=== PATIENT | female | born 1935 | race Caucasian/White ===

== ENCOUNTER 2017-03-01 02:54 | Inpatient (IN) | payer MEDICARE, BC ==
[2017-03-01] MEDS ORDERED: Sodium Chloride 0.9% 1,000 ML IV SCH (04:00)
[2017-03-01] MEDS ORDERED: Ondansetron ODT 4 MG TAB SL PRN (04:00)
[2017-03-01] MEDS ORDERED: Ondansetron HCl/PF 4 MG/2 ML Vial IVP PRN ×2 (04:00→07:42)
[2017-03-01] MEDS ORDERED: Acetaminophen 325 MG TAB PO PRN ×2 (04:00→07:42)
[2017-03-01 04:16] LABS: #Lymphocytes 0.6 thou/uL (1.20-3.40); #Monocytes 1.7 thou/uL (0.11-0.59); #Neutrophils 11.4 thou/uL (1.40-6.50); %Basophils 0.1 % (0.0-1.0); %Eosinophils 0.1 % (0.0-10.0); %Lymphocytes 4.5 % (21.0-51.0); %Monocytes 12.5 % (0.0-10.0); %Neutrophils 82.8 % (42.0-75.0); Mean Corpuscular HGB CONC 31.9 g/dL (32.0-36.0); Mean Corpuscular Volume 94.1 fl (81.0-99.0); Mean Platelet Volume 7.2 fL (7.4-10.4); Platelet Count 207 thou/uL (130-400); RBC Distribution Width 14.4 % (11.5-14.5); Red Blood Cell (RBC) Count 3.33 mill/uL (4.20-5.40); White Blood Cell (WBC) Count 13.7 thou/uL (4.8-10.8)
[2017-03-01 04:25] LABS: ALT (SGPT) 20 U/L (8-55); AST (SGOT) 26 U/L (5-34); Albumin 3.6 g/dL (3.4-4.8); Alkaline Phosphatase 161 U/L (40-150); Anion Gap 14 mmol/L (10-20); BUN (Urea Nitrogen) 15 mg/dL (9.8-20.1); Bilirubin, Total 1.4 mg/dL (0.2-1.2); Calc. Creatinine Clearance 0 mL/min (70-130); Carbon Dioxide 26 mmol/L (23-31); Chloride 91 mmol/L (98-107); Estimated GFR-MDRD 58; Globulin 2.9 g/dL (2.4-3.5); Glucose 137 mg/dL (83-110); Potassium 4.1 mmol/L (3.5-5.1); Protein, Total 6.5 g/dL (6.0-8.3); Sodium 127 mmol/L (136-145)
[2017-03-01 04:28] LABS: CKMB 1.9 ng/mL (0-6.6); Troponin I Less than 0.010 ng/mL (< 0.028)
[2017-03-01] MEDS ORDERED: cefTRIAXone\\ROCEPHIN 1 GM, Syringe 0.4 ML in Sterile Water 9.6 ML SLOW IVP SCH (05:00)
[2017-03-01 06:25] LABS: INR-International Normal Ratio 1.6; PTT 39.6 SEC (22.9-36.1); Prothrombin Time 19.6 SEC (12.0-14.7)
[2017-03-01 06:38] VITALS: BMI 39.4
[2017-03-01] MEDS: Azithromycin 500 MG in Sodium Chloride 0.9% 250 ML 250 ML IVPB SCH ×2 (06:44→06:47)
[2017-03-01] MEDS ORDERED: Eucerin (Mineral Oil/Petrolatum,White) 30 gm Jar TOP PRN (07:42)
[2017-03-01] MEDS ORDERED: hydrALAZINE 20 MG/ML VIAL SLOW IVP PRN (07:42)
[2017-03-01] MEDS ORDERED: Milk Of Magnesia 30 ML UDCUP PO PRN (07:42)
[2017-03-01] MEDS ORDERED: Zolpidem Tartrate 5 MG TAB PO PRN (07:42)
[2017-03-01] MEDS ORDERED: Senokot 8.6 MG TAB PO PRN (07:42)
[2017-03-01] MEDS ORDERED: Ondansetron ODT 4 MG TAB PO PRN (07:42)
[2017-03-01] MEDS ORDERED: Sodium Chloride 0.65% Nasal 44 ML BOT EA NARE PRN (07:42)
[2017-03-01] MEDS ORDERED: Artificial Tears 18 DROP/0.9 ML EA EYE PRN (07:42)
[2017-03-01] MEDS ORDERED: Diabetic Tussin 200 MG/10 ML UDCUP PO PRN (07:42)
[2017-03-01] MEDS ORDERED: Loperamide HCl 2 MG CAP PO PRN (07:42)
[2017-03-01] MEDS ORDERED: Chloraseptic Spray 180 ml Bottle PO PRN (07:42)
[2017-03-01] MEDS ORDERED: Mag-Al 1200 mg/1200 mg/30 ML UDCUP PO PRN (07:42)
[2017-03-01] MEDS ORDERED: Benzonatate 100 MG CAP PO PRN (07:42)
[2017-03-01] MEDS ORDERED: Loratadine 10 MG TAB PO PRN (07:42)
[2017-03-01] MEDS: HYDROcodone/Acetaminophen 5/325 mg Tablet PO PRN ×2 (09:18→19:34)
[2017-03-01] MEDS: guaiFENesin ER 600 MG TAB PO SCH ×2 (09:20→20:55)
--- NOTE | 2017-03-01 11:34 | HP ---
PRIMARY CARE PHYSICIAN: Corbin Purcell M.D. REASON FOR ADMISSION: Acute hypoxic respiratory failure, sepsis with acute organ dysfunction, multif ocal community-acquired pneumonia. HISTORY OF PRESENT ILLNESS: A 81-year-old female who lives at home with her who also has cardenas. Patient has caregiver and many other close family members were having flu-like illness. The patient also started having cough and shortness of breath for the last 3-5 days. Her condition was d ay by day getting worse. She was having wheezing. She was feeling more short of breath and she star werner having fever. She was tachypneic and her oxygen saturation was low and that is why patient's fam david member took her to local urgent care on Wednesday. At that time, flu test was negative, but still T IMI flow was prescribed. The patient took total of 3 doses of Tamiflu. The patient's condition had gotten worse over the weekend. Her [id number] medication was not helping. The patient was hav ing fever and her oxygen saturation was dropping even more and that is why daughter was concerned abo ut it and decided to bring her to the emergency room for evaluation. Patient has a history of PE and she is on chronic Eliquis therapy. Her normal oxygen saturations run s in 93%-95% per daughter. Patient was having more weakness because of fever and cough. The patient was also having nausea and poor appetite for last 2-3 days. Today in the emergency room, she was evaluated and she was found with multifocal pneumonia. She was hypoxic. She was tachypneic and she was afebrile. She was hemodynamically stable after emergency ro om treatment with Rocephin and azithromycin. The patient was admitted to medical floor for further t reatment. The patient's daughter was present at bedside who provided most of the history. REVIEW OF SYSTEMS: The following complete review of systems was negative, unless otherwise mentioned in the HPI or below: Constitutional: Weight loss or gain, ability to conduct usual activities. Skin: Rash, itching. Eyes: Double vision, pain. ENT/Mouth: Nose bleeding, neck stiffness, pain, tenderness. Cardiovascular: Palpitations, dyspnea on exertion, orthopnea. Respiratory: Shortness of breath, wheezing, cough, hemoptysis, fever or night sweats. Gastrointestinal: Poor appetite, abdominal pain, heartburn, nausea, vomiting, constipation, or diarr hea. Genitourinary: Urgency, frequency, dysuria, nocturia. Musculoskeletal: Pain, swelling. Neurologic/Psychiatric: Anxiety, depression. Allergy/Immunologic: Skin rash, bleeding tendency. Please see my HPI for pertinent positive and negative. All other review of system reviewed and negat james except as mentioned in the HPI. PAST MEDICAL HISTORY: Left-sided pulmonary embolism on chronic anticoagulation therapy, coronary art angelic disease, chronic diastolic heart failure, hypertension, dyslipidemia, irritable bowel syndrome, h ypertension, history of breast cancer treated with radiation therapy and lumpectomy, history of sarco idosis, history of melanoma. PAST SURGICAL HISTORY: Cardiac catheterization with angioplasty and stent placement in the past, car pal tunnel surgery, bilateral total knee replacement, hysterectomy, lumpectomy for breast cancer, and mediastinal biopsy. PAST PSYCHIATRIC HISTORY: Reviewed and negative. SOCIAL HISTORY: Patient lives at home with her . She is . Patient is ambulating with a cane. No history of tobacco, alcohol or illicit drug abuse. Patient's 3 daughters and grandkids are helping them out. ALLERGIES: No known drug allergies. CURRENT HOME MEDICATIONS: Coreg 12.5 mg twice daily, Protonix 40 mg p.o. daily, Aldactone 50 mg half tablet daily, Claritin 10 mg daily, anastrozole 1 mg p.o. daily, torsemide 10 mg daily, Lipitor 20 m g p.o. daily, amitriptyline 25 mg p.o. at bedtime, Eliquis 2.5 mg p.o. daily. EMERGENCY ROOM COURSE: Patient was given Rocephin and azithromycin. FAMILY HISTORY: No strong family history of premature coronary artery disease, stroke or cancer. PHYSICAL EXAMINATION: VITAL SIGNS: On arrival, blood pressure 133/90, pulse 83, respiratory rate 24, saturation 88% on jose alejandro m air. Weight 88.4 kilograms. GENERAL: Patient is currently alert, awake, follows command, no obvious acute distress. HEAD: Normocephalic, atraumatic. EYES: Pupils are round and reactive to light. Extraocular muscles intact. ENT: Oropharynx within normal limits. Moist mucous membranes. No oral lesions. No pharyngeal eryt erika, no exudate. NECK: Supple, no JVD, no thyromegaly, no carotid bruit, no meningeal signs of irritation. LUNGS: The patient does have decreased breath sounds at the bases, but patient does have rales on th e right lower lobe and scattered coarse sounds noted. CARDIAC: S1 and S2 regular, soft systolic murmur present at parasternal area. ABDOMEN: Soft, obesity present. Bowel sounds present. Nontender and nondistended. No organomegaly , no mass, no suprapubic tenderness. BACK: Examination unremarkable, no CVA tenderness. EXTREMITIES: Upper extremity passive movements of all joints are normal. Lower extremities: No shannan ma. Good peripheral pulsation. SKIN: No skin rash. HEMATOLOGICAL SYSTEM: No lymphadenopathy. PSYCHIATRIC: Normal affect. NEUROLOGIC: Nonfocal examination. IMAGING DATA AND SIGNIFICANT LABORATORY DATA: 1. EKG showing normal sinus rhythm, nonspecific ST-T changes, left atrial enlargement. 2. Chest x-ray based on my review, multilobar pneumonia, most likely on the right lower lobe. 3. CBC: WBC 13.7, hemoglobin 10.0, platelets 207 with left shift. INR 1.6. 4. BMP: Sodium 127, potassium 4.1, chloride 91, carbon dioxide 26, anion gap 14, BUN 15, creatinine 0.93, glucose 137, calcium 10.0. 5. LFT: AST 26, ALT 20, alkaline phosphatase 161, albumin 3.6, TSH 0.59, CK-MB 1.9, troponin I less than 0.010. ASSESSMENT AND PLAN/IMPRESSION: 1. Acute respiratory failure with hypoxia, likely due to multifocal community-acquired pneumonia. P atient will be given oxygen and we will titrate her requirement for oxygen. We are hoping that with treatment of pneumonia, she will not need home oxygen upon discharge. 2. Community-acquired bacterial pneumonia. Patient had multifocal infiltration. The patient has as sociated hypoxic respiratory failure and sepsis with acute organ dysfunction. Patient will be given Rocephin and levofloxacin. We will continue with DuoNeb therapy q.6 hourly and Mucinex 600 mg twice daily. We will monitor clinical response. 3. Sepsis with acute organ dysfunction. The patient has acute hypoxic respiratory failure. She has leukocytosis, fever, and tachypnea. She meets sepsis criteria. At this point, patient is on broad spectrum antibiotic therapy and we will follow up on culture result. Because of her congestive heart failure history, we will avoid IV fluid. 4. Obesity with body mass index 39. Weight loss as advised. 5. Moderate mitral regurgitation, tricuspid regurgitation, and aortic regurgitation by echocardiogra phy. Patient does have murmur that can explain her valvular heart disease and that is probably contr ibuting to her chronic diastolic heart failure. 6. Hypertension, currently well controlled. We will resume patient's selected blood pressure medica tion while in hospital including Coreg and Aldactone if blood pressure permits. 7. Chronic diastolic heart failure. Currently, patient is euvolemic. If blood pressure permits, I will continue torsemide 10 mg p.o. daily. Because of relatively low blood pressure, we may hold on this medication today, but we are planning to resume as early as possible. 8. Anxiety and depression. We will continue amitriptyline 25 mg p.o. daily. 9. Coronary artery disease. We will continue aspirin 81 mg p.o. daily along with Eliquis 2.5 mg p.o . daily, Coreg therapy and statin therapy. 10. Chronic anticoagulation. We will continue Eliquis 2.5 mg p.o. daily. 11. Chronic low back pain. Patient's pain will be controlled with [place] on a p.r.n. basis. 12. Dyslipidemia. We will continue Lipitor 20 mg p.o. at bedtime. 13. Gastroesophageal reflux disease. We will continue Protonix 40 mg p.o. daily. 14. History of breast cancer. We will continue anastrozole 1 mg p.o. daily. 15. History of pulmonary embolism. We will continue Eliquis 2.5 mg p.o. daily. 16. Hypertension, currently well controlled and running on lower side, so we will consider restartin g Coreg, Aldactone, and torsemide as early as possible. 17. Deep venous thrombosis prophylaxis not needed because patient is already on Eliquis therapy. 18. Gastrointestinal prophylaxis. Patient is already on Protonix therapy. 19. Code status: The patient is FULL CODE, but patient does not want to be intubated in case if she has terminal illness, but currently pneumonia is not terminal illness and that is why patient wants to be a FULL CODE. Disposition plan based on clinical course. We are expecting patient's stay in the hospital more than 2 midnights. Plan of care discussed with patient's daughter and patient's bedside and answered all questions.
--- NOTE | 2017-03-01 13:45 | RAD ---
PORTABLE CHEST 1 VIEW: DATE: 03/01/17. TIME: 3:34 a.m. HISTORY: Cough, hypoxia. FINDINGS: Comparison is made with the exam of 04/23/16. The heart size is enlarged. The aorta is tortuous. The lungs are expanded with patchy airspace dise ase in the right lower lung. No pneumothoraces or pleural effusions are seen. IMPRESSION: Findings are suspicious for right-side pneumonia. POS: [facility]
[2017-03-01] MEDS: Atorvastatin Calcium 20 MG TAB PO SCH (20:55)
[2017-03-01] MEDS ORDERED: Amitriptyline HCl 25 MG TAB PO SCH (21:15)
[2017-03-02] MEDS: HYDROcodone/Acetaminophen 5/325 mg Tablet PO PRN ×4 (03:03→21:16)
[2017-03-02 05:48] LABS: #Lymphocytes 0.4 thou/uL (1.20-3.40); #Monocytes 1.3 thou/uL (0.11-0.59); #Neutrophils 10.3 thou/uL (1.40-6.50); %Eosinophils 0.1 % (0.0-10.0); %Lymphocytes 3.6 % (21.0-51.0); %Monocytes 10.5 % (0.0-10.0); %Neutrophils 85.8 % (42.0-75.0); Hemoglobin 8.9 g/dL (12.0-16.0); Mean Corpuscular HGB CONC 31.9 g/dL (32.0-36.0); Mean Corpuscular Hemoglobin 29.7 pg (27.0-31.0); Mean Corpuscular Volume 93.3 fl (81.0-99.0); Mean Platelet Volume 7.4 fL (7.4-10.4); Platelet Count 190 thou/uL (130-400); Red Blood Cell (RBC) Count 2.99 mill/uL (4.20-5.40)
[2017-03-02 06:00] LABS: ALT (SGPT) 20 U/L (8-55); AST (SGOT) 24 U/L (5-34); Albumin 2.9 g/dL (3.4-4.8); Alkaline Phosphatase 148 U/L (40-150); Anion Gap 10 mmol/L (10-20); BUN (Urea Nitrogen) 10 mg/dL (9.8-20.1); Bilirubin, Total 0.7 mg/dL (0.2-1.2); Calc. Creatinine Clearance 88 mL/min (70-130); Calcium 9.8 mg/dL (7.8-10.44); Carbon Dioxide 28 mmol/L (23-31); Chloride 91 mmol/L (98-107); Estimated GFR-MDRD 75; Globulin 2.6 g/dL (2.4-3.5); Glucose 133 mg/dL (83-110); Potassium 3.5 mmol/L (3.5-5.1); Protein, Total 5.5 g/dL (6.0-8.3); Sodium 125 mmol/L (136-145)
[2017-03-02] MEDS: cefTRIAXone\\ROCEPHIN 2 GM in Sodium Chloride 0.9% 100 ML IVPB SCH (06:31)
[2017-03-02] MEDS: guaiFENesin ER 600 MG TAB PO SCH ×2 (08:38→21:15)
[2017-03-02] MEDS: Apixaban 5 MG TAB PO SCH (08:39)
[2017-03-02] MEDS: Anastrozole 1 MG TAB PO SCH (08:41)
[2017-03-02] MEDS ORDERED: Amitriptyline HCl 25 MG TAB PO SCH (09:00)
--- NOTE | 2017-03-02 10:25 | PDOC.PN ---
- Subjective Encounter Start Date: 03/02/17 Encounter Start Time: 08:10 -: old records requested/rev pt is improving, has wheezing and cough, no fever Patient seen and examined. No overnight events - Objective Resuscitation Status: Resuscitation Status FULL:Full Resuscitation MAR Reviewed: Yes Vital Signs & Weight: Vital Signs (12 hours) Temp Pulse Resp BP Pulse Ox 03/02/17 08:10 98.0 F 72 16 131/74 95 03/02/17 08:00 98.0 F 72 16 03/02/17 06:55 79 16 95 03/02/17 04:00 97.9 F 70 18 132/70 65 L 03/02/17 00:40 79 16 93 L 03/02/17 00:00 98 F 80 16 134/82 98 Weight Weight 201 lb 11.2 oz I&O: 03/01/17 03/02/17 03/03/17 06:59 06:59 06:59 Intake Total 570 Balance 570 Result Diagrams: 03/02/17 05:18 03/02/17 05:18 Phys Exam - Physical Examination Constitutional: NAD HEENT: PERRLA, moist MMs, sclera anicteric Neck: no JVD, supple Respiratory: wheezing present basal rales more on right side Cardiovascular: RRR, no significant murmur, no rub Gastrointestinal: soft, non-tender, no distention, positive bowel sounds Musculoskeletal: no edema, pulses present Neurological: non-focal, normal sensation Lymphatic: no nodes Psychiatric: normal affect Skin: no rash, normal turgor Dx/Plan (1) Hyponatremia Code(s): E87.1 - HYPO-OSMOLALITY AND HYPONATREMIA Status: Acute (2) Acute respiratory failure with hypoxia Code(s): J96.01 - ACUTE RESPIRATORY FAILURE WITH HYPOXIA Status: Acute (3) Community acquired bacterial pneumonia Code(s): J15.9 - UNSPECIFIED BACTERIAL PNEUMONIA Status: Acute (4) Sepsis with acute organ dysfunction Code(s): A41.9 - SEPSIS, UNSPECIFIED ORGANISM; R65.20 - SEVERE SEPSIS WITHOUT SEPTIC SHOCK Status: Acute (5) Anxiety and depression Code(s): F41.8 - OTHER SPECIFIED ANXIETY DISORDERS Status: Chronic (6) CAD (coronary artery disease) Code(s): I25.10 - ATHSCL HEART DISEASE OF [place] CORONARY ARTERY W/O ANG PCTRS Status: Chronic (7) Chronic anticoagulation Code(s): Z79.01 - 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 PHP SOFTWARE 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 (CURRENT) USE OF ANTICOAGULANTS Status: Chronic (8) Chronic diastolic (congestive) heart failure Code(s): I50.32 - CHRONIC DIASTOLIC (CONGESTIVE) HEART FAILURE Status: Chronic (9) Chronic lower back pain Code(s): M54.5 - LOW BACK PAIN; G89.29 - OTHER CHRONIC PAIN Status: Chronic (10) Dyslipidemia Code(s): E78.5 - HYPERLIPIDEMIA, UNSPECIFIED Status: Chronic (11) GERD (gastroesophageal reflux disease) Code(s): K21.9 - GASTRO-ESOPHAGEAL REFLUX DISEASE WITHOUT ESOPHAGITIS Status: Chronic (12) H/O malignant neoplasm of breast Code(s): Z85.3 - PERSONAL HISTORY OF MALIGNANT NEOPLASM OF BREAST Status: Chronic (13) History of pulmonary embolism Code(s): Z86.711 - PERSONAL HISTORY OF PULMONARY EMBOLISM Status: Chronic (14) Hypertension Code(s): I10 - ESSENTIAL (PRIMARY) HYPERTENSION Status: Chronic Comment: controlled (15) Moderate aortic regurgitation Code(s): I35.1 - NONRHEUMATIC AORTIC (VALVE) INSUFFICIENCY Status: Chronic (16) Moderate mitral regurgitation by prior echocardiogram Code(s): I34.0 - NONRHEUMATIC MITRAL (VALVE) INSUFFICIENCY Status: Chronic (17) Moderate tricuspid regurgitation by prior echocardiogram Code(s): I07.1 - RHEUMATIC TRICUSPID INSUFFICIENCY Status: Chronic (18) Obesity (BMI 30-39.9) Code(s): E66.9 - OBESITY, UNSPECIFIED Status: Chronic - Plan cont current plan of care, plan discussed w/ family, continue antibiotics, respiratory therapy * fluid restriction advised * medication reviewed as below * symptomatic treatment * discussed with daughter * continue duoneb, roicephin, levaquin, mucinex * start PT * improving * repeat labs tomorrow. Review of Systems - Review of Systems Constitutional: weakness. negative: fever, chills, sweats, malaise, other ENT: negative: Ear Pain, Ear Discharge, Nose Pain, Nose Discharge, Nose Congestion, Mouth Pain, Mouth Swelling, Throat Pain, Throat Swelling, Other Respiratory: Cough, Pleuritic Pain, Sputum, Wheezing. negative: Dry, Shortness of Breath, Hemoptysis, SOB with Excertion Cardiovascular: negative: chest pain, palpitations, orthopnea, paroxysmal nocturnal dyspnea, edema, light headedness, other Gastrointestinal: negative: Nausea, Vomiting, Abdominal Pain, Diarrhea, Constipation, Melena, Hematochezia, Other Genitourinary: negative: Dysuria, Frequency, Incontinence, Hematuria, Retention , Other Musculoskeletal: negative: Neck Pain, Shoulder Pain, Arm Pain, Back Pain, Hand Pain, Leg Pain, Foot Pain, Other Skin: negative: Rash, Lesions, [place], Bruising, Other - Medications/Allergies Allergies/Adverse Reactions: Allergies Allergy/AdvReac Type Severity Reaction Status Date / Time No Known Drug Allergies Allergy Verified 03/25/16 18:18 adhesives Allergy Uncoded 03/25/16 18:18 Medications: Current Medications Acetaminophen (Tylenol) 650 mg PO Q4H PRN PRN Reason: Headache/Fever or Pain Hydrocodone Bitart/Acetaminophen ([place] 5/325) 1 tab PO Q4H PRN PRN Reason: Moderate Pain (4-6) Last Admin: 03/02/17 08:44 Dose: 1 tab Al Hydroxide/Mg Hydroxide (Maalox) 30 ml PO Q6H PRN PRN Reason: Heartburn or Indigestion Albuterol/Ipratropium (Duoneb) 3 ml NEB [id number] [facility] Last Admin: 03/02/17 06:55 Dose: 3 ml Amitriptyline HCl (Elavil) [address] [facility] Anastrozole (Arimidex) 1 mg PO DAILY [facility] Last Admin: 03/02/17 08:41 Dose: 1 mg Apixaban (Eliquis) 2.5 mg PO DAILY [facility] Last Admin: 03/02/17 08:39 Dose: 2.5 mg Artificial Tears (Tears Naturale) 0 drop EA EYE PRN PRN PRN Reason: Dry Eyes Atorvastatin Calcium (Lipitor) 20 mg PO HS [facility] Last Admin: 03/01/17 20:55 Dose: 20 mg Benzonatate (Tessalon) 100 mg PO Q4H PRN PRN Reason: Cough Guaifenesin (Robitussin Sf) 200 mg PO Q4H PRN PRN Reason: Cough Guaifenesin (Mucinex) 600 mg PO Q12HR [facility] Last Admin: 03/02/17 08:38 Dose: 600 mg Hydralazine HCl (Apresoline) 10 mg SLOW IVP Q4H PRN PRN Reason: Systolic BP > 180 Ceftriaxone Sodium 2 gm/ (Sodium Chloride) 100 mls @ 200 mls/hr IVPB 0600 [facility] Last Admin: 03/02/17 06:31 Dose: 100 mls Levofloxacin 750 mg/ Device 150 mls @ 100 mls/hr IVPB 0800 [facility] Last Admin: 03/02/17 08:38 Dose: 150 mls Loperamide HCl (Imodium) 2 mg PO PRN PRN PRN Reason: Diarrhea/Loose Stools Loratadine (Claritin) 10 mg PO DAILYPRN PRN PRN Reason: Sinus Symptoms Magnesium Hydroxide (Milk Of Magnesium) 30 ml PO DAILYPRN PRN PRN Reason: Constipation Mineral Oil/White Petrolatum (Eucerin Cream) 0 gm TOP BIDPRN PRN PRN Reason: Dry Skin Ondansetron HCl (Zofran Odt) 4 mg PO Q6H PRN PRN Reason: Nausea/Vomiting Ondansetron HCl (Zofran) 4 mg IVP Q6H PRN PRN Reason: Nausea/Vomiting Pantoprazole Sodium (Protonix) 40 mg PO DAILY [facility] Last Admin: 03/02/17 08:38 Dose: 40 mg Phenol (Chloraseptic [place] 180 Ml Bot) 0 ml PO PRN PRN PRN Reason: Sore Throat Senna (Senokot) 2 tab PO HSPRN PRN PRN Reason: Constipation Sodium Chloride ([place] Nasal [place] 0.65%) 0 ml EA NARE QIDPRN PRN PRN Reason: Nasal Congestion Sodium Chloride (Flush - Normal Saline) 10 ml IVF Q12HR [facility] Last Admin: 03/02/17 08:42 Dose: 10 ml Sodium Chloride (Flush - Normal Saline) 10 ml IVF PRN PRN PRN Reason: Saline Flush Zolpidem Tartrate (Ambien) 5 mg PO HSPRN PRN PRN Reason: Insomnia
[2017-03-02] MEDS: Amitriptyline HCl 25 MG TAB PO SCH (21:16)
[2017-03-02] MEDS: Atorvastatin Calcium 20 MG TAB PO SCH (21:17)
[2017-03-03] MEDS: cefTRIAXone\\ROCEPHIN 2 GM in Sodium Chloride 0.9% 100 ML IVPB SCH (05:52)
[2017-03-03] MEDS: HYDROcodone/Acetaminophen 5/325 mg Tablet PO PRN ×2 (08:00→17:28)
[2017-03-03 08:28] LABS: #Lymphocytes 0.4 thou/uL (1.20-3.40); #Monocytes 1.2 thou/uL (0.11-0.59); #Neutrophils 10.7 thou/uL (1.40-6.50); %Eosinophils 0.1 % (0.0-10.0); %Lymphocytes 3.5 % (21.0-51.0); %Monocytes 9.7 % (0.0-10.0); %Neutrophils 86.7 % (42.0-75.0); Hemoglobin 10.8 g/dL (12.0-16.0); Mean Corpuscular Hemoglobin 30.1 pg (27.0-31.0); Mean Platelet Volume 6.7 fL (7.4-10.4); Platelet Count 284 thou/uL (130-400); RBC Distribution Width 14.5 % (11.5-14.5); Red Blood Cell (RBC) Count 3.59 mill/uL (4.20-5.40); White Blood Cell (WBC) Count 12.3 thou/uL (4.8-10.8)
[2017-03-03 08:49] LABS: Anion Gap 16 mmol/L (10-20); BUN (Urea Nitrogen) 6 mg/dL (9.8-20.1); Calc. Creatinine Clearance 93 mL/min (70-130); Calcium 10.4 mg/dL (7.8-10.44); Carbon Dioxide 26 mmol/L (23-31); Chloride 98 mmol/L (98-107); Estimated GFR-MDRD 79; Glucose 106 mg/dL (83-110); Potassium 3.5 mmol/L (3.5-5.1); Sodium 136 mmol/L (136-145)
[2017-03-03] MEDS: Anastrozole 1 MG TAB PO SCH (09:00)
[2017-03-03] MEDS: Apixaban 5 MG TAB PO SCH (09:55)
[2017-03-03] MEDS: guaiFENesin ER 600 MG TAB PO SCH ×2 (09:55→20:13)
--- NOTE | 2017-03-03 10:16 | PDOC.PN ---
- Subjective Encounter Start Date: 03/03/17 Encounter Start Time: 08:10 Patient seen and examined. No new complaints. No overnight events - Objective Resuscitation Status: Resuscitation Status FULL:Full Resuscitation MAR Reviewed: Yes Vital Signs & Weight: Vital Signs (12 hours) Temp Pulse Resp BP Pulse Ox 03/03/17 08:20 98.1 F 86 18 150/72 H 94 L 03/03/17 03:49 98.0 F 80 16 134/80 95 03/03/17 01:55 95 03/03/17 01:34 98.1 F 80 16 138/77 99 Weight Weight 201 lb 11.2 oz I&O: 03/02/17 03/03/17 03/04/17 06:59 06:59 06:59 Intake Total 570 1070 Balance 570 1070 Result Diagrams: 03/03/17 08:19 03/03/17 08:19 Phys Exam - Physical Examination Constitutional: NAD HEENT: PERRLA, moist MMs, sclera anicteric Neck: no JVD, supple Respiratory: no wheezing, no rales, no rhonchi Cardiovascular: RRR, no significant murmur, no rub Gastrointestinal: soft, non-tender, no distention, positive bowel sounds Musculoskeletal: no edema, pulses present Neurological: non-focal, normal sensation, moves all 4 limbs Psychiatric: normal affect, A&O x 3 Skin: no rash, normal turgor Dx/Plan (1) Acute respiratory failure with hypoxia Code(s): J96.01 - ACUTE RESPIRATORY FAILURE WITH HYPOXIA Status: Acute (2) Community acquired bacterial pneumonia Code(s): J15.9 - UNSPECIFIED BACTERIAL PNEUMONIA Status: Acute (3) Sepsis with acute organ dysfunction Code(s): A41.9 - SEPSIS, UNSPECIFIED ORGANISM; R65.20 - SEVERE SEPSIS WITHOUT SEPTIC SHOCK Status: Acute (4) Anxiety and depression Code(s): F41.8 - OTHER SPECIFIED ANXIETY DISORDERS Status: Chronic (5) CAD (coronary artery disease) Code(s): I25.10 - ATHSCL HEART DISEASE OF [place] CORONARY ARTERY W/O ANG PCTRS Status: Chronic (6) Chronic anticoagulation Code(s): Z79.01 - SHELTER (CURRENT) USE OF ANTICOAGULANTS Status: Chronic (7) Chronic diastolic (congestive) heart failure Code(s): I50.32 - CHRONIC DIASTOLIC (CONGESTIVE) HEART FAILURE Status: Chronic (8) Chronic lower back pain Code(s): M54.5 - LOW BACK PAIN; G89.29 - OTHER CHRONIC PAIN Status: Chronic (9) Dyslipidemia Code(s): E78.5 - HYPERLIPIDEMIA, UNSPECIFIED Status: Chronic (10) GERD (gastroesophageal reflux disease) Code(s): K21.9 - GASTRO-ESOPHAGEAL REFLUX DISEASE WITHOUT ESOPHAGITIS Status: Chronic (11) H/O malignant neoplasm of breast Code(s): Z85.3 - PERSONAL HISTORY OF MALIGNANT NEOPLASM OF BREAST Status: Chronic (12) History of pulmonary embolism Code(s): Z86.711 - PERSONAL HISTORY OF PULMONARY EMBOLISM Status: Chronic (13) Hypertension Code(s): I10 - ESSENTIAL (PRIMARY) HYPERTENSION Status: Chronic Comment: controlled (14) Moderate aortic regurgitation Code(s): I35.1 - NONRHEUMATIC AORTIC (VALVE) INSUFFICIENCY Status: Chronic (15) Moderate mitral regurgitation by prior echocardiogram Code(s): I34.0 - NONRHEUMATIC MITRAL (VALVE) INSUFFICIENCY Status: Chronic (16) Moderate tricuspid regurgitation by prior echocardiogram Code(s): I07.1 - RHEUMATIC TRICUSPID INSUFFICIENCY Status: Chronic (17) Obesity (BMI 30-39.9) Code(s): E66.9 - OBESITY, UNSPECIFIED Status: Chronic - Plan cont current plan of care, plan discussed w/ family, continue antibiotics, PT/OT , respiratory therapy * medication reviewed as below * symptomatic treatment * continue one more day iv antibiotics * tomorrow will discharge Review of Systems - Review of Systems ENT: negative: Ear Pain, Ear Discharge, Nose Pain, Nose Discharge, Nose Congestion, Mouth Pain, Mouth Swelling, Throat Pain, Throat Swelling, Other Respiratory: negative: Cough, Dry, Shortness of Breath, Hemoptysis, SOB with Excertion, Pleuritic Pain, Sputum, Wheezing Cardiovascular: negative: chest pain, palpitations, orthopnea, paroxysmal nocturnal dyspnea, edema, light headedness, other Gastrointestinal: negative: Nausea, Vomiting, Abdominal Pain, Diarrhea, Constipation, Melena, Hematochezia, Other Genitourinary: negative: Dysuria, Frequency, Incontinence, Hematuria, Retention , Other Musculoskeletal: negative: Neck Pain, Shoulder Pain, Arm Pain, Back Pain, Hand Pain, Leg Pain, Foot Pain, Other Skin: negative: Rash, Lesions, [place], Bruising, Other - Medications/Allergies Allergies/Adverse Reactions: Allergies Allergy/AdvReac Type Severity Reaction Status Date / Time No Known Drug Allergies Allergy Verified 03/25/16 18:18 adhesives Allergy Uncoded 03/25/16 18:18 Medications: Current Medications Acetaminophen (Tylenol) 650 mg PO Q4H PRN PRN Reason: Headache/Fever or Pain Hydrocodone Bitart/Acetaminophen ([place] 5/325) 1 tab PO Q4H PRN PRN Reason: Moderate Pain (4-6) Last Admin: 03/03/17 08:00 Dose: 1 tab Al Hydroxide/Mg Hydroxide (Maalox) 30 ml PO Q6H PRN PRN Reason: Heartburn or Indigestion Albuterol/Ipratropium (Duoneb) 3 ml NEB [id number] [facility] Last Admin: 03/03/17 01:55 Dose: 3 ml Amitriptyline HCl (Elavil) 25 mg PO [facility] Last Admin: 03/02/17 21:16 Dose: 25 mg Anastrozole (Arimidex) 1 mg PO DAILY [facility] Last Admin: 03/02/17 08:41 Dose: 1 mg Apixaban (Eliquis) 2.5 mg PO DAILY [facility] Last Admin: 03/03/17 09:55 Dose: 2.5 mg Artificial Tears (Tears Naturale) 0 drop EA EYE PRN PRN PRN Reason: Dry Eyes Atorvastatin Calcium (Lipitor) 20 mg PO HS [facility] Last Admin: 03/02/17 21:17 Dose: 20 mg Benzonatate (Tessalon) 100 mg PO Q4H PRN PRN Reason: Cough Guaifenesin (Robitussin Sf) 200 mg PO Q4H PRN PRN Reason: Cough Guaifenesin (Mucinex) 600 mg PO Q12HR [facility] Last Admin: 03/03/17 09:55 Dose: 600 mg Hydralazine HCl (Apresoline) 10 mg SLOW IVP Q4H PRN PRN Reason: Systolic BP > 180 Ceftriaxone Sodium 2 gm/ (Sodium Chloride) 100 mls @ 200 mls/hr IVPB 0600 [facility] Last Admin: 03/03/17 05:52 Dose: 100 mls Levofloxacin 750 mg/ Device 150 mls @ 100 mls/hr IVPB 0800 [facility] Last Admin: 03/03/17 09:58 Dose: 150 mls Loperamide HCl (Imodium) 2 mg PO PRN PRN PRN Reason: Diarrhea/Loose Stools Loratadine (Claritin) 10 mg PO DAILYPRN PRN PRN Reason: Sinus Symptoms Magnesium Hydroxide (Milk Of Magnesium) 30 ml PO DAILYPRN PRN PRN Reason: Constipation Mineral Oil/White Petrolatum (Eucerin Cream) 0 gm TOP BIDPRN PRN PRN Reason: Dry Skin Ondansetron HCl (Zofran Odt) 4 mg PO Q6H PRN PRN Reason: Nausea/Vomiting Ondansetron HCl (Zofran) 4 mg IVP Q6H PRN PRN Reason: Nausea/Vomiting Pantoprazole Sodium (Protonix) 40 mg PO DAILY [facility] Last Admin: 03/03/17 09:55 Dose: 40 mg Phenol (Chloraseptic [place] 180 Ml Bot) 0 ml PO PRN PRN PRN Reason: Sore Throat Senna (Senokot) 2 tab PO HSPRN PRN PRN Reason: Constipation Sodium Chloride ([place] Nasal [place] 0.65%) 0 ml EA NARE QIDPRN PRN PRN Reason: Nasal Congestion Sodium Chloride (Flush - Normal Saline) 10 ml IVF Q12HR [facility] Last Admin: 03/02/17 21:17 Dose: 10 ml Sodium Chloride (Flush - Normal Saline) 10 ml IVF PRN PRN PRN Reason: Saline Flush Zolpidem Tartrate (Ambien) 5 mg PO HSPRN PRN PRN Reason: Insomnia
[2017-03-03] MEDS: Amitriptyline HCl 25 MG TAB PO SCH (20:13)
[2017-03-03] MEDS: Atorvastatin Calcium 20 MG TAB PO SCH (20:13)
[2017-03-04] MEDS: HYDROcodone/Acetaminophen 5/325 mg Tablet PO PRN ×3 (00:02→12:14)
[2017-03-04] MEDS: cefTRIAXone\\ROCEPHIN 2 GM in Sodium Chloride 0.9% 100 ML IVPB SCH (06:22)
[2017-03-04 07:53] LABS: #Basophils 0.1 thou/uL (0.0-0.2); #Lymphocytes 0.8 thou/uL (1.20-3.40); #Monocytes 1.2 thou/uL (0.11-0.59); #Neutrophils 7.5 thou/uL (1.40-6.50); %Basophils 0.6 % (0.0-1.0); %Eosinophils 0.4 % (0.0-10.0); %Lymphocytes 7.9 % (21.0-51.0); %Monocytes 12.9 % (0.0-10.0); %Neutrophils 78.2 % (42.0-75.0); Hemoglobin 10.2 g/dL (12.0-16.0); Mean Corpuscular HGB CONC 31.9 g/dL (32.0-36.0); Mean Corpuscular Hemoglobin 30.1 pg (27.0-31.0); Mean Corpuscular Volume 94.3 fl (81.0-99.0); Mean Platelet Volume 6.4 fL (7.4-10.4); Platelet Count 268 thou/uL (130-400); RBC Distribution Width 14.6 % (11.5-14.5); White Blood Cell (WBC) Count 9.6 thou/uL (4.8-10.8)
[2017-03-04] MEDS: Apixaban 5 MG TAB PO SCH (08:25)
[2017-03-04] MEDS: guaiFENesin ER 600 MG TAB PO SCH (08:25)
[2017-03-04] MEDS: Anastrozole 1 MG TAB PO SCH (08:32)
--- NOTE | 2017-03-04 10:20 | PDOC.PN ---
- Subjective Encounter Start Date: 03/04/17 Encounter Start Time: 09:00 Patient seen and examined. No new complaints. No overnight events - Objective Resuscitation Status: Resuscitation Status FULL:Full Resuscitation MAR Reviewed: Yes Vital Signs & Weight: Vital Signs (12 hours) Temp Pulse Resp BP Pulse Ox 03/04/17 08:56 80 03/04/17 07:45 97.9 F 85 16 118/82 93 L 03/04/17 03:44 98.1 F 79 16 142/82 H 96 03/04/17 00:08 98.2 F 78 18 142/75 H 94 L Weight Weight 201 lb 11.2 oz I&O: 03/03/17 03/04/17 03/05/17 06:59 06:59 06:59 Intake Total 1070 1300 Balance 1070 1300 Result Diagrams: 03/04/17 07:46 03/03/17 08:19 Phys Exam - Physical Examination Constitutional: NAD HEENT: PERRLA, moist MMs, sclera anicteric Neck: no JVD, supple Respiratory: no wheezing, no rales, no rhonchi Cardiovascular: RRR, no significant murmur, no rub Gastrointestinal: soft, non-tender, no distention, positive bowel sounds Musculoskeletal: no edema, pulses present Neurological: non-focal, normal sensation Lymphatic: no nodes Psychiatric: normal affect, A&O x 3 Skin: no rash, normal turgor Dx/Plan (1) Acute respiratory failure with hypoxia Code(s): J96.01 - ACUTE RESPIRATORY FAILURE WITH HYPOXIA Status: Acute (2) Community acquired bacterial pneumonia Code(s): J15.9 - UNSPECIFIED BACTERIAL PNEUMONIA Status: Acute (3) Sepsis with acute organ dysfunction Code(s): A41.9 - SEPSIS, UNSPECIFIED ORGANISM; R65.20 - SEVERE SEPSIS WITHOUT SEPTIC SHOCK Status: Acute (4) Anxiety and depression Code(s): F41.8 - OTHER SPECIFIED ANXIETY DISORDERS Status: Chronic (5) CAD (coronary artery disease) Code(s): I25.10 - ATHSCL HEART DISEASE OF [place] CORONARY ARTERY W/O ANG PCTRS Status: Chronic (6) Chronic anticoagulation Code(s): Z79.01 - HALF-WAY (CURRENT) USE OF ANTICOAGULANTS Status: Chronic (7) Chronic diastolic (congestive) heart failure Code(s): I50.32 - CHRONIC DIASTOLIC (CONGESTIVE) HEART FAILURE Status: Chronic (8) Chronic lower back pain Code(s): M54.5 - LOW BACK PAIN; G89.29 - OTHER CHRONIC PAIN Status: Chronic (9) Dyslipidemia Code(s): E78.5 - HYPERLIPIDEMIA, UNSPECIFIED Status: Chronic (10) GERD (gastroesophageal reflux disease) Code(s): K21.9 - GASTRO-ESOPHAGEAL REFLUX DISEASE WITHOUT ESOPHAGITIS Status: Chronic (11) H/O malignant neoplasm of breast Code(s): Z85.3 - PERSONAL HISTORY OF MALIGNANT NEOPLASM OF BREAST Status: Chronic (12) History of pulmonary embolism Code(s): Z86.711 - PERSONAL HISTORY OF PULMONARY EMBOLISM Status: Chronic (13) Hypertension Code(s): I10 - ESSENTIAL (PRIMARY) HYPERTENSION Status: Chronic Comment: controlled (14) Moderate aortic regurgitation Code(s): I35.1 - NONRHEUMATIC AORTIC (VALVE) INSUFFICIENCY Status: Chronic (15) Moderate mitral regurgitation by prior echocardiogram Code(s): I34.0 - NONRHEUMATIC MITRAL (VALVE) INSUFFICIENCY Status: Chronic (16) Moderate tricuspid regurgitation by prior echocardiogram Code(s): I07.1 - RHEUMATIC TRICUSPID INSUFFICIENCY Status: Chronic (17) Obesity (BMI 30-39.9) Code(s): E66.9 - OBESITY, UNSPECIFIED Status: Chronic - Plan cont current plan of care, plan discussed w/ family, continue antibiotics * medication reviewed as below * symptomatic treatment * stable for discharge * see discharge ivone. Review of Systems - Review of Systems ENT: negative: Ear Pain, Ear Discharge, Nose Pain, Nose Discharge, Nose Congestion, Mouth Pain, Mouth Swelling, Throat Pain, Throat Swelling, Other Respiratory: negative: Cough, Dry, Shortness of Breath, Hemoptysis, SOB with Excertion, Pleuritic Pain, Sputum, Wheezing Cardiovascular: negative: chest pain, palpitations, orthopnea, paroxysmal nocturnal dyspnea, edema, light headedness, other Gastrointestinal: negative: Nausea, Vomiting, Abdominal Pain, Diarrhea, Constipation, Melena, Hematochezia, Other Genitourinary: negative: Dysuria, Frequency, Incontinence, Hematuria, Retention , Other Musculoskeletal: negative: Neck Pain, Shoulder Pain, Arm Pain, Back Pain, Hand Pain, Leg Pain, Foot Pain, Other Skin: negative: Rash, Lesions, [place], Bruising, Other - Medications/Allergies Allergies/Adverse Reactions: Allergies Allergy/AdvReac Type Severity Reaction Status Date / Time No Known Drug Allergies Allergy Verified 03/25/16 18:18 adhesives Allergy Uncoded 03/25/16 18:18 Medications: Current Medications Acetaminophen (Tylenol) 650 mg PO Q4H PRN PRN Reason: Headache/Fever or Pain Hydrocodone Bitart/Acetaminophen ([employer] 5/325) 1 tab PO Q4H PRN PRN Reason: Moderate Pain (4-6) Last Admin: 03/04/17 06:54 Dose: 1 tab Al Hydroxide/Mg Hydroxide (Maalox) 30 ml PO Q6H PRN PRN Reason: Heartburn or Indigestion Albuterol/Ipratropium (Duoneb) 3 ml NEB [id number] [facility] Last Admin: 03/04/17 08:56 Dose: 3 ml Amitriptyline HCl (Elavil) 25 mg PO HS [facility] Last Admin: 03/03/17 20:13 Dose: 25 mg Anastrozole (Arimidex) 1 mg PO DAILY [facility] Last Admin: 03/04/17 08:32 Dose: 1 mg Apixaban (Eliquis) 2.5 mg PO DAILY [facility] Last Admin: 03/04/17 08:25 Dose: 2.5 mg Artificial Tears (Tears Naturale) 0 drop EA EYE PRN PRN PRN Reason: Dry Eyes Atorvastatin Calcium (Lipitor) 20 mg PO HS [facility] Last Admin: 03/03/17 20:13 Dose: 20 mg Benzonatate (Tessalon) 100 mg PO Q4H PRN PRN Reason: Cough Guaifenesin (Robitussin Sf) 200 mg PO Q4H PRN PRN Reason: Cough Guaifenesin (Mucinex) 600 mg PO Q12HR [facility] Last Admin: 03/04/17 08:25 Dose: 600 mg Hydralazine HCl (Apresoline) 10 mg SLOW IVP Q4H PRN PRN Reason: Systolic BP > 180 Ceftriaxone Sodium 2 gm/ (Sodium Chloride) 100 mls @ 200 mls/hr IVPB 0600 [facility] Last Admin: 03/04/17 06:22 Dose: 100 mls Levofloxacin 750 mg/ Device 150 mls @ 100 mls/hr IVPB 0800 [facility] Last Admin: 03/04/17 08:24 Dose: 150 mls Loperamide HCl (Imodium) 2 mg PO PRN PRN PRN Reason: Diarrhea/Loose Stools Loratadine (Claritin) 10 mg PO DAILYPRN PRN PRN Reason: Sinus Symptoms Magnesium Hydroxide (Milk Of Magnesium) 30 ml PO DAILYPRN PRN PRN Reason: Constipation Mineral Oil/White Petrolatum (Eucerin Cream) 0 gm TOP BIDPRN PRN PRN Reason: Dry Skin Ondansetron HCl (Zofran Odt) 4 mg PO Q6H PRN PRN Reason: Nausea/Vomiting Ondansetron HCl (Zofran) 4 mg IVP Q6H PRN PRN Reason: Nausea/Vomiting Pantoprazole Sodium (Protonix) 40 mg PO DAILY [facility] Last Admin: 03/04/17 08:25 Dose: 40 mg Phenol (Chloraseptic Girard 180 Ml Bot) 0 ml PO PRN PRN PRN Reason: Sore Throat Senna (Senokot) 2 tab PO HSPRN PRN PRN Reason: Constipation Last Admin: 03/03/17 20:12 Dose: 2 tab Sodium Chloride ([place] Nasal Girard 0.65%) 0 ml EA NARE QIDPRN PRN PRN Reason: Nasal Congestion Sodium Chloride (Flush - Normal Saline) 10 ml IVF Q12HR [facility] Last Admin: 03/03/17 20:13 Dose: 10 ml Sodium Chloride (Flush - Normal Saline) 10 ml IVF PRN PRN PRN Reason: Saline Flush Zolpidem Tartrate (Ambien) 5 mg PO HSPRN PRN PRN Reason: Insomnia
--- NOTE | 2017-03-04 11:18 | DIS ---
DATE OF ADMISSION: 03/01/2017 DATE OF DISCHARGE: 03/04/2017 DISCHARGE DISPOSITION: Home. PRIMARY DISCHARGE DIAGNOSES: 1. Acute respiratory failure with hypoxia, resolved. 2. Community-acquired bacterial pneumonia. 3. Hyponatremia. 4. Sepsis with acute organ dysfunction. SECONDARY DISCHARGE DIAGNOSES: Obesity with BMI 39, moderate tricuspid regurgitation, moderate nickie l regurgitation, moderate aortic regurgitation, hypertension, pulmonary embolism, history of breast c ancer, gastroesophageal reflux disease, dyslipidemia, chronic low back pain, chronic diastolic heart failure, chronic anticoagulation, coronary artery disease, anxiety, and depression. PRIMARY PROCEDURE/OPERATION: None. RADIOLOGICAL INVESTIGATION: Chest x-ray. SIGNIFICANT LABORATORY DATA: Hemoglobin 10.2, INR 1.6, creatinine 0.71. Influenza negative. Blood culture negative. DISCHARGE MEDICATIONS: Amitriptyline 25 mg p.o. at bedtime, amlodipine 5 mg p.o. daily, Arimidex 1 m g p.o. daily, Eliquis 2.5 mg p.o. b.i.d., Lipitor 20 mg p.o. at bedtime, Coreg 12.5 mg p.o. b.i.d., c etirizine 10 mg p.o. daily, Lexapro 10 mg p.o. daily, Mucinex 600 mg twice daily, [place] 10 one tablet q.6 hourly p.r.n., levofloxacin 750 mg p.o. daily for 7 days, multivitamin 1 tablet p.o. daily, Prot dennis 40 mg p.o. every other day, Aldactone 12.5 mg p.o. daily, and torsemide 5 mg p.o. every other da y. CONTRAINDICATIONS: None. CODE STATUS: FULL CODE. INPATIENT CONSULTANTS: None. ALLERGIES: No known drug allergy. DISCHARGE PLAN: Post hospital, the patient will follow up with primary care physician in 1 week. HOSPITAL COURSE: A 81-year-old female, who was admitted by me on 03/01/2017. Please see my H&P for further details. The patient was admitted in hospital for community-acquired pneumonia. She was hav ing acute hypoxic respiratory failure. She was meeting sepsis with acute organ dysfunction. She had hyponatremia. She was very weak. Her influenza screen was negative. Patient was admitted to medic al floor. She was treated with Rocephin and levofloxacin. On discharge, we changed to p.o. levoflox acin. By the time of discharge, the patient was not requiring any oxygen. She remained hemodynamica lly stable, afebrile, tolerating p.o. well and ambulatory. This patient may need an outpatient sleep study to rule out any nocturnal hypoxia. The patient is seen and examined at bedside today. Plan of care discussed with the patient's family member at bedside. Patient is eager to go home today. The patient is seen and examined at bedside t gregg. Please see my progress note from today for further detail. All new medication prescription gi trey to her pharmacy. The patient is medically stable for discharge today.
[2017-03-04 12:57] VITALS: BP 139/80; TEMP 97.3
--- NOTE | 2017-03-06 16:11 | EKG ---
Test Reason : Blood Pressure : / mmHG Vent. Rate : 078 BPM Atrial Rate : 078 BPM P-R Int : 138 ms QRS Dur : 080 ms QT Int : 388 ms P-R-T Axes : 061 006 056 degrees QTc Int : 442 ms Normal sinus rhythm Possible Left atrial enlargement Borderline ECG Confirmed by SHERI SPENCER D.O. ([id number]), online editor GERARD QUEEN ([id number]) on 03/06/2017 4:10:49 PM Referred By: ROSE MARY SPENCER Confirmed By:SHERI SPENCER D.O.
== END 2017-03-04 13:10 | disposition home or self-care (01) | DRG 871 ==
LOC: ERS 02:54 → SURG B 04:50 → ERS 06:09
PROVIDERS: ADMIT Internal Medicine Infectious Disease; ATTEND Internal Medicine Infectious Disease
DX: A41.9 Sepsis, unspecified organism (principal); J96.01 Acute respiratory failure with hypoxia; I11.0 Hypertensive heart disease with heart failure; J15.9 Unspecified bacterial pneumonia; N17.9 Acute kidney failure, unspecified; I50.32 Chronic diastolic (congestive) heart failure; E87.1 Hypo-osmolality and hyponatremia; I08.3 Combined rheumatic disorders of mitral, aortic and tricuspid valves; R65.20 Severe sepsis without septic shock; E78.5 Hyperlipidemia, unspecified; I25.10 Atherosclerotic heart disease of native coronary artery without angina pectoris; E66.9 Obesity, unspecified; F32.9 Major depressive disorder, single episode, unspecified; F41.9 Anxiety disorder, unspecified; K21.9 Gastro-esophageal reflux disease without esophagitis; M54.5 Low back pain; G89.29 Other chronic pain; Z68.39 Body mass index [BMI] 39.0-39.9, adult; Z79.01 Long term (current) use of anticoagulants; Z79.82 Long term (current) use of aspirin; Z86.711 Personal history of pulmonary embolism; Z85.3 Personal history of malignant neoplasm of breast; Z85.820 Personal history of malignant melanoma of skin; Z92.3 Personal history of irradiation; Z95.5 Presence of coronary angioplasty implant and graft; Z96.653 Presence of artificial knee joint, bilateral
CPT/HCPCS: 36415; 71045; 80048; 80053; 82553; 84443; 84484; 85025; 85610; 85730; 87040; 87804; 93005; 94760; 96365; 96375; 99213; A4216; G0463; G8978-GP-CL; G8979-GP-CK; G8987-GO-CK; G8988-GO-CI; J0456; J0696; J1956; J7050; J7620

== ENCOUNTER 2017-05-04 19:30 | Outpatient (CLI) | payer MEDICARE, BC | END 2017-05-04 19:31 | disposition home or self-care (01) | LOC: SLEEPLAB 19:30 | PROVIDERS: ATTEND Internal Medicine Pulmonary Disease | DX: G47.33 Obstructive sleep apnea (adult) (pediatric) (principal); I11.0 Hypertensive heart disease with heart failure; I50.9 Heart failure, unspecified; I25.10 Atherosclerotic heart disease of native coronary artery without angina pectoris | CPT/HCPCS: 95810 ==

== ENCOUNTER 2017-05-05 20:30 | Outpatient (CLI) | payer MEDICARE, BC | END 2017-05-05 20:31 | disposition home or self-care (01) | LOC: SLEEPLAB 20:30 | PROVIDERS: ATTEND Internal Medicine Pulmonary Disease | DX: G47.33 Obstructive sleep apnea (adult) (pediatric) (principal) | CPT/HCPCS: 95811 ==

== ENCOUNTER 2018-04-06 15:17 | Outpatient (CLI) | payer MEDICARE, BC ==
--- NOTE | 2018-04-06 15:45 | RAD ---
CHEST TWO VIEWS: History: Dyspnea. Comparison: 04-29-16 FINDINGS: Cardiac silhouette is unremarkable. Pulmonary vasculature remains upper limits of normal. Lungs remai n hyperinflated. Wide spread reticular interstitial thickening is similar in appearance to the previo us exam. Mediastinum is midline. No confluent airspace consolidation, pneumothorax or pleural fluid. IMPRESSION: No active cardiopulmonary abnormalities are demonstrated. POS: [facility]
== END 2018-04-06 15:18 | disposition home or self-care (01) ==
LOC: RAD 15:17
PROVIDERS: ATTEND Internal Medicine Pulmonary Disease
DX: R06.00 Dyspnea, unspecified (principal)
CPT/HCPCS: 71046

== ENCOUNTER 2018-12-04 10:40 | Emergency (ER) | payer MEDICARE, BC | END 2018-12-04 12:49 | disposition home or self-care (01) | LOC: SCSER 10:40 | DX: M76.9 Unspecified enthesopathy, lower limb, excluding foot (principal); K58.9 Irritable bowel syndrome, unspecified; E78.5 Hyperlipidemia, unspecified; E78.00 Pure hypercholesterolemia, unspecified; I25.10 Atherosclerotic heart disease of native coronary artery without angina pectoris; I11.0 Hypertensive heart disease with heart failure; I50.9 Heart failure, unspecified | CPT/HCPCS: 99283 ==

== ENCOUNTER 2019-01-02 14:11 | Outpatient (CLI) | payer MEDICARE, BC ==
--- NOTE | 2019-01-02 14:40 | RAD ---
CHEST TWO VIEWS: INDICATIONS: History of dyspnea. COMPARISON: 04/06/2018 FINDINGS: Chronic lung changes are stable. Mild cardiomegaly is stable. No pleural effusion or pneumothorax is evident. No acute osseous abnormality is noted. IMPRESSION: No acute cardiopulmonary abnormality. POS: [facility]
== END 2019-01-02 14:12 | disposition home or self-care (01) ==
LOC: RAD 14:11
PROVIDERS: ATTEND Internal Medicine Pulmonary Disease
DX: R06.00 Dyspnea, unspecified (principal)
CPT/HCPCS: 71046

== ENCOUNTER 2019-07-01 08:48 | Observation (INO) | payer MEDICARE, BC ==
[2019-07-01 09:32] LABS: #Eosinphils 0.1 thou/uL (0.0-0.7); #Lymphocytes 0.8 thou/uL (1.20-3.40); #Monocytes 0.4 thou/uL (0.11-0.59); #Neutrophils 5.5 thou/uL (1.40-6.50); %Basophils 0.3 % (0.0-1.0); %Eosinophils 1.2 % (0.0-10.0); %Lymphocytes 11.2 % (21.0-51.0); %Monocytes 6.4 % (0.0-10.0); %Neutrophils 80.9 % (42.0-75.0); Hemoglobin 11.7 g/dL (12.0-16.0); Mean Corpuscular HGB CONC 32.6 g/dL (32.0-36.0); Mean Corpuscular Hemoglobin 31.9 pg (27.0-31.0); Mean Corpuscular Volume 97.9 fL (78.0-98.0); Mean Platelet Volume 7.4 fL (7.4-10.4); Platelet Count 233 thou/uL (130-400); Red Blood Cell (RBC) Count 3.67 mill/uL (4.20-5.40); White Blood Cell (WBC) Count 6.8 thou/uL (4.8-10.8)
--- NOTE | 2019-07-01 09:38 | RAD ---
CHEST ONE VIEW: HISTORY: Chest pain. COMPARISON: Radiograph from 03/13/2019. FINDINGS: Mild pulmonary venous congestion. Heart size is at the upper limits of normal. No pneumothorax. No ef fusion. Some peripheral fibrosis in the lower lobes. IMPRESSION: No acute intrathoracic abnormality. POS: HOME
[2019-07-01 09:42] LABS: PTT 27.1 SEC (22.9-36.1); Prothrombin Time 13.2 SEC (12.0-14.7)
[2019-07-01 09:47] LABS: ALT (SGPT) 15 U/L (8-55); AST (SGOT) 22 U/L (5-34); Albumin 4.3 g/dL (3.4-4.8); Alkaline Phosphatase 114 U/L (40-110); Anion Gap 19 mmol/L (10-20); BUN (Urea Nitrogen) 12 mg/dL (9.8-20.1); Bilirubin, Total 0.5 mg/dL (0.2-1.2); CK (CPK) 68 U/L (29-168); Calc. Creatinine Clearance 0 mL/min (70-130); Calcium 10.9 mg/dL (7.8-10.44); Carbon Dioxide 23 mmol/L (23-31); Chloride 98 mmol/L (98-107); Estimated GFR-MDRD 49; Glucose 109 mg/dL (83-110); Potassium 4.1 mmol/L (3.5-5.1); Protein, Total 7.3 g/dL (6.0-8.3); Sodium 136 mmol/L (136-145)
[2019-07-01] MEDS ORDERED: Iopamidol-370 76% 500 ML 1 ML ONE (10:08)
[2019-07-01] MEDS ORDERED: Aspirin Chewable 81 MG TAB ONE (11:17)
--- NOTE | 2019-07-01 11:36 | CT ---
CT ANGIOGRAM CHEST WITH CONTRAST: HISTORY: Chest pain. COMPARISON: Chest radiograph from the same day for reference. TECHNIQUE: CT angiogram chest performed after the intravenous administration of contrast with 3D rendering provi ded. FINDINGS: The pulmonary arteries are dilated. The pulmonary trunk is dilated. No proximal segmental pulmonary a rterial filling defects. The aortic contour is nonaneurysmal. The thyroid is unremarkable. No significant pericardial fluid. T here is thinning of the left ventricular apex myocardium. Small sliding hiatal hernia. No mediastinal adenopathy. There is mosaic attenuation of the lungs, likely from chronic small vessel disease. Calcified granulo ma within the medial basal left lower lobe. There are peripheral foci of scarring in the lungs, predominantly in the left upper lobe, as well as the lingula, as well as both lower lobes. The sternum and manubrium are intact. The thoracic spine is intact. No acute displaced rib fracture. No pulmonary consolidation or pneumothorax. IMPRESSION: 1. No pulmonary embolism. 2. Mosaic attenuation of the lungs from chronic small vessel disease. 3. Dilated pulmonary trunk and pulmonary arteries, indicative of pulmonary hypertension. 4. Peripheral pleural scarring, both upper lobes and posterior aspect of lower lobes, unchanged from the comparison examination. 5. Thinning of the left ventricular apex myocardium, likely from prior infarction. POS: HOME
--- NOTE | 2019-07-01 11:40 | CT ---
CT ABDOMEN AND PELVIS WITH CONTRAST: HISTORY: Abdominal pain. COMPARISON: None. FINDINGS: The aorta is tortuous without aneurysmal dilatation. The spleen, liver and pancreas are unremarkable. The gallbladder is unremarkable. The portal vein is patent. Multiple cysts of the kidneys. No hydronephrosis. No free intraperitoneal gas or fluid. No dilated loops of large or small bowel. No retroperitoneal or periaortic adenopathy. The celiac jose nk and superior mesenteric arteries are patent. Subtle, too small to characterize, 4 mm hypodensity of the hepatic segment 7, near the hepatic dome, too small to fully characterize. High-grade degenerative changes of the lumbar spine, including facet arthrosis and disk degeneration with multilevel neural foraminal and spinal canal narrowing. Mild demineralization. IMPRESSION: 1. No acute inflammatory process in the abdomen or pelvis. 2. Multiple bilateral renal cysts. POS: HOME
[2019-07-01 13:07] LABS: Troponin I 0.025 ng/mL (< 0.028)
[2019-07-01] MEDS ORDERED: Nitroglycerin 0.4 MG TAB (25 Tab Bottle) PO PRN (13:25)
[2019-07-01] MEDS ORDERED: Albuterol Sulfate 1.25 MG/3 ML NEB NEB PRN (13:29)
[2019-07-01] MEDS ORDERED: hydrALAZINE 20 MG/ML VIAL SLOW IVP PRN (13:45)
[2019-07-01] MEDS ORDERED: Sodium Chloride 0.9% 1,000 ML IV SCH (13:45)
[2019-07-01] MEDS ORDERED: Torsemide 10 MG TAB PO SCH (14:00)
--- NOTE | 2019-07-01 14:20 | HP ---
CHIEF COMPLAINT: Chest warmth. HISTORY OF PRESENT ILLNESS: This is an 83-year-old female with history of coronary artery disease; hypertension; chronic respiratory failure on home oxygen; hypercoagulable state with history of PE and DVT; breast cancer, status post treatment and in remission, who presents to the emergency room with the above complaint. The patient reports that it was after waking up when she was still lying in bed that she had a warm sensation that radiated across her chest. She denies any pain, she is uncertain if chest pressure was present, but thinks it might be. She had nausea after getting out of bed, but no vomiting. She denies any radiation to her back, or her arms. She is chronically short of breath and denies any change in this. She denies any prior history of similar symptoms. She is followed by Dr. Stokes and reports a pharmacologic stress test a few years ago that was normal. She also reports a remote history of coronary artery disease and angioplasty and denies any problems since then. Because of her symptoms and her history, she presented to the emergency room for further evaluation. In the emergency room, the patient received 162 mg of aspirin, and hospitalist called for admission. REVIEW OF SYSTEMS: Negative for fevers, chills, abdominal pain, change in cough which is normally present, or urinary changes. Positive for chronically short of breath, and chronic lower extremity edema, which has been controlled with torsemide. All remaining review of systems are reviewed and negative. ALLERGIES: NO KNOWN DRUG ALLERGIES, SHE IS ALLERGIC TO ADHESIVE TAPE. CURRENT MEDICATIONS: Reconciled with the package. 1. Protonix 40 mg every day. 2. Spironolactone 25 mg daily. 3. Anastrozole 1 mg daily. 4. Torsemide 10 mg Wednesday, , Wednesday, Wednesday and 20 mg Wednesday, Wednesday, and Wednesday. 5. Eliquis 2.5 mg daily. 6. Atorvastatin 20 mg daily. 7. Trazodone 50 mg at bedtime. 8. Escitalopram 10 mg daily. 9. Levocetirizine 5 mg at bedtime. 10. Magnesium oxide 400 mg daily. 11. Multivitamin daily. 12. ProAir 2 to 3 times per day. 13. Fentanyl patch 25 mcg/hr. PAST MEDICAL HISTORY: 1. Coronary artery disease and history of angioplasty. 2. Breast cancer, status post lumpectomy, radiation and chemotherapy. 3. Hypertension. 4. Dyslipidemia. 5. History of melanoma. 6. Chronic respiratory failure, on home oxygen therapy, the patient is unaware of the underlying diagnosis if it is asthma, COPD, or other. 7. Mood disorder. 8. GERD. PAST SURGICAL HISTORY: 1. Hysterectomy. 2. Bilateral knees. 3. Carpal tunnel. 4. Left breast lumpectomy. 5. Coronary angioplasty. SOCIAL HISTORY: The patient lives with her daughter, Anna. She denies alcohol or tobacco. She is a full code and her surrogate decision makers are either her daughter Ana or her daughter Anna. FAMILY HISTORY: Her dad had heart problems and an aortic aneurysm. PHYSICAL EXAMINATION: VITAL SIGNS: Blood pressure 159/107, pulse 86, respirations 20, sats 98% on 2 L. GENERAL: Awake, alert, responsive, in no apparent distress. Able to speak in full sentences. HEENT: Her tympanic membranes are translucent. Oral mucosa is pink and moist. NECK: Supple, nontender. LYMPHATICS: No palpable anterior cervical or supraclavicular lymphadenopathy. LUNGS: Clear to auscultation bilateral with good air movement. No audible wheezing, rhonchi, or rales. HEART: Normal S1, S2 with a 2/6 systolic ejection murmur. ABDOMEN: Soft. Tenderness to palpation on the left side. No palpable abnormalities and no rebound or guarding. Present bowel sounds. EXTREMITIES: No pitting edema, clubbing, or cyanosis. VASCULAR: 2+ dorsalis pedis pulses. SKIN: No visible rashes. NEURO: No focal deficits. Moves arms and legs equally. PSYCH: Appears euthymic. LABORATORY DATA: Labs reviewed. CBC; 6.8, 11.7, 36.0, 233. INR 1.0. Renal panel; 136, 4.1, 98, 23, 12, 1.08, 109. Calcium is 10.9. T-bilirubin is 0.5, AST 22, ALT 15, alkaline phosphatase 114, total protein 7.3, albumin 4.3. Troponin x2 are negative. EKG is personally reviewed, normal axis, sinus rhythm, no ST changes. CT angiogram of the chest negative for PE, mosaic attenuation in the lungs from chronic small-vessel disease, dilated pulmonary trunk and pulmonary arteries consistent with pulmonary hypertension, peripheral pleural scarring both upper lobes and posterior aspect of lower lobes, unchanged from the comparison exam; thinning of the left ventricular apex myocardium likely from prior infarction. CT abdomen and pelvis. No acute inflammatory process in the abdomen or pelvis. Multiple bilateral renal cysts. Chest x-ray, no acute intrathoracic abnormality. This is personally reviewed. IMPRESSION: 1. Atypical chest sx in a patient with known coronary artery disease and multiple risk factors. 2. Chronic respiratory failure with hypoxia, on home oxygen, appears compensated. 3. Abdominal pain - negative evaluation. 4. Hypertension, uncontrolled. 5. Dyslipidemia. 6. History of breast cancer, status post treatment. 7. Renal cysts, incidental finding on CT. 8. Mood disorder. 9. Gastroesophageal reflux disease. 10. Anemia, mild and chronic PLAN: 1. Observation status in the hospital. 2. Telemetry monitoring, check a lipid panel in the morning, and a nuclear pharmacologic stress test as the patient reports she has tolerated this in the past. If the test is normal, I anticipate she can be discharged to home to follow up with Dr. Stokes in the office. Will also order an echocardiogram. 3. Continuing her usual home medications. 4. Hydralazine p.r.n. for improved blood pressure control, pt has not taken her usual meds today. 5. Holding beta-edith due to the plan for stress test tomorrow. 6. Obtain a third troponin. 7. Gentle hydration given the patient received a CT scan with contrast today. 8. DVT prophylaxis. She is on Eliquis. We will continue her same once daily dosing. 9. GI prophylaxis not indicated. The patient is on a PPI at home. We will continue that. 10. Code status is full. Surrogate decision makers are her daughters as noted above. 11. The patient is at high risk given age, comorbidities, and current presentation. 12. Reviewed the plan of care with the patient, who demonstrates understanding and agrees. No questions or further needs at the end of evaluation. Job ID: [id number] [facility]
[2019-07-01 14:52] VITALS: BMI 43.5
[2019-07-01] MEDS: Torsemide 10 MG TAB PO SCH (15:07)
[2019-07-01 16:39] LABS: Troponin I 0.014 ng/mL (< 0.028)
[2019-07-01] MEDS: Acetaminophen 325 MG TAB PO PRN (16:43)
[2019-07-01] MEDS ORDERED: traZODone HCl 50 MG TAB PO SCH (21:00)
[2019-07-01] MEDS ORDERED: Melatonin 3 MG TAB PO SCH (21:00)
[2019-07-01] MEDS ORDERED: Loratadine 5 MG/5 ML UDCUP PO SCH (21:00)
[2019-07-02 04:55] LABS: Anion Gap 14 mmol/L (10-20); BUN (Urea Nitrogen) 11 mg/dL (9.8-20.1); Calc. Creatinine Clearance 73 mL/min (70-130); Calcium 10.4 mg/dL (7.8-10.44); Carbon Dioxide 27 mmol/L (23-31); Cardiac Risk 2.3 (Less than 4.5); Chloride 101 mmol/L (98-107); Cholesterol 133 mg/dl (< 200 Desired); Estimated GFR-MDRD 56; Glucose 100 mg/dL (83-110); HDL Cholesterol 57 mg/dL (>60 Neg Risk); LDL Cholesterol, Calculated 57 mg/dL; Potassium 3.9 mmol/L (3.5-5.1); Sodium 138 mmol/L (136-145); Triglycerides 95 mg/dL (Less than 150)
[2019-07-02] MEDS: Torsemide 10 MG TAB PO SCH (06:12)
[2019-07-02] MEDS ORDERED: Spironolactone 25 MG TAB PO SCH (08:00)
[2019-07-02] MEDS ORDERED: Escitalopram Oxalate 10 mg Tablet PO SCH (09:00)
[2019-07-02] MEDS ORDERED: Anastrozole 1 MG TAB PO SCH (09:00)
[2019-07-02] MEDS ORDERED: Apixaban 2.5 MG TAB PO SCH (09:00)
[2019-07-02] MEDS ORDERED: Magnesium Oxide 400 MG TAB PO SCH (09:00)
[2019-07-02] MEDS ORDERED: Atorvastatin Calcium 20 MG TAB PO SCH (09:00)
[2019-07-02] MEDS ORDERED: Regadenoson 0.4 MG/5 ML SYRINGE ONE (09:40)
--- NOTE | 2019-07-02 10:15 | PDOC.HOSPP ---
- Subjective Encounter Date: 07/02/19 (f/u chest sx) Encounter Time: 10:13 Subjective: Pt without complaints today - denies any sensation of warmth/pressure. no overnight events. Has completed one part of the stress test, is receiving an echo now and awaiting the second part of the test. - Objective Vital Signs & Weight: Vital Signs (12 hours) Temp Pulse Resp BP Pulse Ox 07/02/19 08:50 97.8 F 77 16 192/83 H 94 L 07/02/19 03:41 97.6 F 77 18 167/75 H 92 L 07/02/19 00:18 93 L Weight Weight 222 lb 14.4 oz I&O: 07/01/19 07/02/19 07/03/19 06:59 06:59 06:59 Intake Total 1648 Output Total 1150 Balance 498 Result Diagrams: 07/01/19 09:17 07/02/19 04:14 EKG Reviewed by me: Yes (tele - sinus 80's, pAC's) Hospitalist ROS - Medication Medications: Active Medications Generic Name Dose Route Start Last Admin Trade Name Freq PRN Reason Stop Dose Admin Acetaminophen 650 mg 07/01/19 13:25 07/01/19 16:43 Tylenol PO 650 mg Q4H PRN Administration Headache/Fever/Mild Pain (1-3) Anastrozole 1 mg 07/02/19 09:00 07/02/19 06:05 Arimidex PO 1 mg DAILY ETHEL Administration Apixaban 2.5 mg 07/02/19 09:00 07/02/19 06:06 Eliquis PO 2.5 mg DAILY ETHEL Administration Atorvastatin Calcium 20 mg 07/02/19 09:00 07/02/19 06:05 Lipitor PO 20 mg DAILY ETHEL Administration Escitalopram Oxalate 10 mg 07/02/19 09:00 07/02/19 06:06 Lexapro PO 10 mg DAILY ETHEL Administration Fentanyl 25 mcg 07/02/19 09:00 07/02/19 06:02 Duragesic TD 25 mcg Q3D ETHEL Administration Loratadine 5 mg 07/01/19 21:00 07/01/19 20:34 Claritin Oral Solution PO 5 mg HS ETHEL Administration Magnesium Oxide 400 mg 07/02/19 09:00 07/02/19 06:06 Magnesium Oxide PO Not Given DAILY ETHEL Melatonin 9 mg 07/01/19 21:00 07/01/19 20:34 Melatonin PO 9 mg HS ETHEL Administration Pantoprazole Sodium 40 mg 07/02/19 09:00 07/02/19 06:06 Protonix PO 40 mg DAILY ETHEL Administration Spironolactone 25 mg 07/02/19 08:00 07/02/19 06:05 Aldactone PO 25 mg QAM-WM ETHEL Administration Torsemide 10 mg 07/01/19 09:00 07/02/19 06:12 Demadex PO 10 mg SuTuThSa ETHEL Administration Trazodone HCl 50 mg 07/01/19 21:00 07/01/19 20:34 Desyrel PO 50 mg HS ETHEL Administration - Exam General Appearance: NAD Heart: RRR Heart - other findings: unchanged 2/6 AMOS Respiratory: CTAB, no wheezes, no rales, no ronchi Gastrointestinal: soft, non-tender, non-distended, normal bowel sounds Extremities: no cyanosis, no clubbing, no edema Psychiatric: normal affect Hosp A/P (1) Chest pressure Code(s): R07.89 - OTHER CHEST PAIN Status: Acute (2) Chronic respiratory failure with hypoxia Code(s): J96.11 - CHRONIC RESPIRATORY FAILURE WITH HYPOXIA Status: Chronic (3) Chronic lower back pain Code(s): M54.5 - LOW BACK PAIN; G89.29 - OTHER CHRONIC PAIN Status: Chronic Qualifiers: Back pain laterality: unspecified (4) Dyslipidemia Code(s): E78.5 - HYPERLIPIDEMIA, UNSPECIFIED Status: Chronic (5) Hypertension Code(s): I10 - ESSENTIAL (PRIMARY) HYPERTENSION Status: Chronic - Plan Atypical chest sx in a patient with known CAD, HTN, Dyslidemia - obtain echo results - nuc stress test - to complete & obtain results HTN - improved control, continue current meds - will need f/u with PCP and/or Dr. Stokes Dyslipidemia - at goal - continue statin DVT prophy - on daily eliquis as outpatient GI prophy - not indicated code status full Anticipate if pt has normal studies, d/c to home today. If abnormal, will consult Cardiology reviewed plan of care with patient, no questions or further needs at end of eval
[2019-07-02] MEDS: Acetaminophen 325 MG TAB PO PRN (11:08)
--- NOTE | 2019-07-02 13:45 | NM ---
NUCLEAR MEDICINE CARDIAC MYOCARDIAL PERFUSION SPECT EJECTION FRACTION STUDY WALL MOTION CINE: DATE: 07/02/2019 HISTORY: 83-year-old hypertensive female with coronary artery disease, congestive heart failure, dyslipidemia, and family history of coronary artery disease, presents with chest pain TECHNIQUE: Number of days: 2 Rest study: Technetium 99m-sestamibi (Cardiolite) dose: 28.8 mCi Pharmacologic stress: Lexiscan dose: 0.4 mg Stress study: Technetium 99m-sestamibi (Cardiolite) dose: 30.1 mCi FINDINGS: CARDIAC (MYOCARDIAL PERFUSION) SPECT There are no reversible myocardial perfusion defects. There is a fixed defect involving the anteroseptal wall, reaching the apex. EJECTION FRACTION STUDY Left ventricular EF = 76 % WALL MOTION CINE Normal IMPRESSION: 1. No evidence of reversible ischemia. 2. Evidence for Anteroseptal apical scar/infarction.
[2019-07-02 18:34] VITALS: BP 149/69; TEMP 98
--- NOTE | 2019-07-03 00:55 | DIS ---
DATE OF ADMISSION: 07/01/2019 DATE OF DISCHARGE: 07/02/2019 PROCEDURES PERFORMED: 1. Nuclear stress test, no reversible defect, ejection fraction estimated at 70% , there is an area of scar or prior infarction. 2. Echocardiogram with normal LV function, RVSP of 40 mm Hg. MEDICATIONS: Reconciled at discharge and they are the same as her usual home medications. 1. ProAir inhaler 2 puffs every 6 hours as needed. 2. Anastrozole 1 mg daily. 3. Eliquis 2.5 mg daily. 4. Atorvastatin 20 mg at bedtime. 5. Lexapro 10 mg daily. 6. Levocetirizine 5 mg at bedtime. 7. Magnesium oxide 400 mg daily. 8. Melatonin 10 mg at bedtime. 9. Multivitamin daily. 10. Protonix 40 mg daily. 11. Spironolactone 25 mg daily. 12. Torsemide 10 mg on Wednesday, , Wednesday, Wednesday and 20 mg on Wednesday, Wednesday, and Wednesday. 13. Fentanyl patch 25 mcg hourly, change every 3 days. 14. Trazodone 50 mg at bedtime. HISTORY OF PRESENT ILLNESS: Ms. Abebe is an 83-year-old female with chronic respiratory failure, on home oxygen, history of hypercoagulable state with PE and DVT, on Eliquis, coronary artery disease, and history of angioplasty, who presented to the emergency room with some chest warmth and possible chest pressure. Because of her history, she was admitted for further evaluation. HOSPITAL COURSE: The patient was evaluated on telemetry and maintained on sinus rhythm. She had troponins x3 that were negative. Today, she underwent a nuclear stress test, which showed no reversible defect, only an area in the apex of scar or prior infarction. She also underwent echocardiogram, which shows a normal left ventricular systolic function and right side RVSP at 40 mmHg. She has not had any return of her symptoms. Given the negative cardiac workup, her lipids are well controlled with atorvastatin, she does meet criteria for discharge to home. I recommend that she follow up with Dr. 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 Also to re-evaluate her blood pressures, some of which were elevated during this hospitalization. In addition, I recommend she follow up with Dr. Purcell in the outpatient setting for review of her overall health and her breathing. PHYSICAL EXAMINATION: Please see the note on chart. VALIENTE FINDINGS AND TEST RESULTS: 1. CBC, 6.8, 11.7, 36.0, 233. 2. INR 1.0. 3. Chemistry, 138, 3.9, 101, 27, 11, 0.96, 100. 4. Calcium is 10.4. 5. T-bili 0.5, AST 22, ALT 15, alkaline phosphatase 114, total protein 7.3, albumin 4.3. 6. Triglycerides 95, cholesterol 133, LDL 57, HDL 57. 7. Troponin x3 negative. 8. Nuclear stress test performed today shows no reversible myocardial perfusion defects. There is a fixed defect involving the anteroseptal wall reaching the apex with an EF estimated at 76%. 9. Echocardiogram results are pending. 10. CT angiogram of the chest, no PE, mosaic attenuation of the lungs from chronic small-vessel disease, dilated pulmonary trunk and pulmonary arteries indicative of pulmonary hypertension, peripheral pleural scarring both upper lobes and posterior aspect of lower lobes, unchanged from the comparison exam, thinning of the left ventricular apex myocardium, likely from prior infarction. 11. CT of abdomen and pelvis, no acute inflammatory process, multiple bilateral renal cysts. 12. Chest x-ray, no acute intrathoracic abnormality. FINAL DIAGNOSES: 1. Atypical chest symptoms, negative cardiac evaluation. 2. Coronary artery disease with history of angioplasty, evidence of scar in the apical region. SECONDARY DIAGNOSES: 1. Chronic respiratory failure with hypoxia, on home oxygen. 2. Pulmonary Hypertension based on studies performed here. 3. History of breast cancer, status post treatment. 4. Hypertension. 5. Dyslipidemia. 6. History of melanoma. 7. Mood disorder. 8. Gastroesophageal reflux disease. 9. Renal cyst based on CT scan. DIET: Heart healthy. ACTIVITY: As tolerated. CODE STATUS: Full. FOLLOWUP: 1. Dr. Stokes with the next available appointment to review this hospitalization , compare the prior nuclear stress test with the current one, and address any other cardiac needs. 2. Follow up with Dr. Purcell for review of the symptoms that led to this hospitalization, and address any other health needs. DISCHARGE DISPOSITION: Home. TOTAL TIME COORDINATING DISCHARGE: 30 minutes. Reviewed the plan of care, reviewed this hospitalization, test results, seek care precautions with the patient who demonstrates understanding. We also talked about the importance of followup. Total time coordinating discharge is 30 minutes. Job ID: [id number] MTDD
[2019-07-03] MEDS ORDERED: Torsemide 20 MG TAB PO SCH ×2 (09:00→14:00)
== END 2019-07-02 17:33 | disposition home or self-care (01) ==
LOC: ERS 08:48 → 2NO 12:23
PROVIDERS: ADMIT Family Medicine; ATTEND Family Medicine
DX: R07.89 Other chest pain (principal); I27.20 Pulmonary hypertension, unspecified; J96.11 Chronic respiratory failure with hypoxia; I10 Essential (primary) hypertension; I25.10 Atherosclerotic heart disease of native coronary artery without angina pectoris; E78.5 Hyperlipidemia, unspecified; F39 Unspecified mood [affective] disorder; K21.9 Gastro-esophageal reflux disease without esophagitis; Z85.3 Personal history of malignant neoplasm of breast; Z91.048 Other nonmedicinal substance allergy status; Z79.01 Long term (current) use of anticoagulants; Z79.899 Other long term (current) drug therapy
CPT/HCPCS: 71045; 71275; 74177; 78452; 80048; 80053; 80061; 82550; 84484 ×2; 85025; 85610; 85730; 93005; 93017; 93306; 94760 ×2; 99285; A9500; G0378 ×3; 36415; J2785; Q9967

== ENCOUNTER 2020-04-08 13:52 | Outpatient (CLI) | payer MEDICARE, BC ==
--- NOTE | 2020-04-08 14:43 | RAD ---
RADIOGRAPH CHEST 2 VIEW: DATE: 04/08/2020 HISTORY: 84-year-old female with COPD presents with dyspnea FINDINGS: The thoracic aorta is tortuous and ectatic. There is no evidence of airspace density, pulmonary edema , or pneumothorax. There is no pleural effusion. No interval change since 07/01/2019. IMPRESSION: 1) No acute pulmonary findings. 2) ectasia of thoracic aorta.
== END 2020-04-08 13:53 | disposition home or self-care (01) ==
LOC: SCSRAD 13:52
PROVIDERS: ATTEND Internal Medicine Pulmonary Disease
DX: J44.9 Chronic obstructive pulmonary disease, unspecified (principal); R06.00 Dyspnea, unspecified; I77.810 Thoracic aortic ectasia
CPT/HCPCS: 71046

== ENCOUNTER 2020-04-27 14:16 | Day surgery (SDC) | payer MEDICARE, BC ==
[2020-04-27] MEDS ORDERED: diphenhydrAMINE 25 MG CAP PO SCH (15:30)
[2020-04-27] MEDS ORDERED: Acetaminophen 500 MG TAB PO SCH (15:30)
[2020-04-27 16:56] VITALS: BMI 43.0
[2020-04-27 17:52] VITALS: BP 144/63; TEMP 97.7
[2020-04-28 00:02] LABS: #Eosinphils 0.1 thou/uL (0.0-0.7); #Lymphocytes 1.1 thou/uL (1.20-3.40); #Monocytes 0.9 thou/uL (0.11-0.59); %Basophils 0.3 % (0.0-1.0); %Eosinophils 0.9 % (0.0-10.0); %Lymphocytes 12.4 % (21.0-51.0); %Monocytes 9.6 % (0.0-10.0); %Neutrophils 76.8 % (42.0-75.0); Hemoglobin 9.1 g/dL (12.0-16.0); Mean Corpuscular HGB CONC 32.2 g/dL (32.0-36.0); Mean Corpuscular Hemoglobin 31.5 pg (27.0-31.0); Mean Corpuscular Volume 97.7 fL (78.0-98.0); Mean Platelet Volume 7.3 fL (7.4-10.4); Platelet Count 245 thou/uL (130-400); RBC Distribution Width 16.7 % (11.5-14.5); Red Blood Cell (RBC) Count 2.89 mill/uL (4.20-5.40); White Blood Cell (WBC) Count 9.1 thou/uL (4.8-10.8)
== END 2020-04-27 23:54 | disposition home or self-care (01) ==
LOC: ONC/OP 14:16 → SDC/OP 14:16 → 3SE 14:30 → SDC/OP 23:54
PROVIDERS: ATTEND Internal Medicine Hematology & Oncology
PROC: 30233N1 Transfusion of Nonautologous Red Blood Cells into Peripheral Vein, Percutaneous Approach (ICD-10-PCS; principal; 2020-04-27)
DX: D64.9 Anemia, unspecified (principal); D69.6 Thrombocytopenia, unspecified; Z91.048 Other nonmedicinal substance allergy status
CPT/HCPCS: 36430; 85025; 86850; 86900; 86901; 86920; P9016; Q0163

== ENCOUNTER 2020-08-08 15:00 | Outpatient (CLI) | payer MEDICARE, BC | END 2020-08-08 15:01 | disposition home or self-care (01) | LOC: SCSRAD 15:00 | PROVIDERS: ATTEND Internal Medicine Cardiovascular Disease | DX: R06.02 Shortness of breath (principal) | CPT/HCPCS: 71046 ==

== ENCOUNTER 2020-12-12 12:00 | Outpatient (CLI) | payer MEDICARE, BC | END 2020-12-12 12:01 | disposition home or self-care (01) | LOC: RAD 12:00 | PROVIDERS: ATTEND Internal Medicine Pulmonary Disease | DX: R06.00 Dyspnea, unspecified (principal) | CPT/HCPCS: 36415; 71046; 80053 ==

== ENCOUNTER 2023-01-27 11:22 | Emergency (ER) | payer MEDICARE, BC ==
[~2023-01-27 11:22] MED LIST: Iopamidol-370 76% 500 ML MDV (1 ML CHARGE) ONE
[2023-01-27 12:05] LABS: #Monocytes 0.5 thou/uL (0.11-0.59); #Neutrophils 11.1 thou/uL (1.40-6.50); %Basophils 0.1 % (0.0-1.0); %Lymphocytes 2.3 % (21.0-51.0); %Neutrophils 92.8 % (42.0-75.0); Hematocrit 28.7 % (36.0-47.0); Hemoglobin 8.6 g/dL (12.0-16.0); Mean Corpuscular Hemoglobin 31.2 pg (27.0-31.0); Mean Platelet Volume 9.4 fL (7.4-10.4); Platelet Count 294 10x3/uL (130-400); RBC Distribution Width 16.1 % (11.5-14.5); Red Blood Cell (RBC) Count 2.76 mill/uL (4.20-5.40)
[2023-01-27 12:29] LABS: ALT (SGPT) 19 U/L (8-55); AST (SGOT) 18 U/L (5-34); Albumin 4.1 g/dL (3.4-4.8); Alkaline Phosphatase 105 U/L (40-110); Anion Gap 17 mmol/L (10-20); BUN (Urea Nitrogen) 18 mg/dL (9.8-20.1); Bilirubin, Total 0.3 mg/dL (0.2-1.2); Calc. Creatinine Clearance 0 mL/min (70-130); Calcium 10.7 mg/dL (7.8-10.44); Carbon Dioxide 28 mmol/L (23-31); Chloride 97 mmol/L (98-107); Estimated GFR 30; Globulin 2.6 g/dL (2.4-3.5); Glucose 116 mg/dL (83-110); Potassium 4.9 mmol/L (3.5-5.1); Protein, Total 6.7 g/dL (5.8-8.1); Sodium 137 mmol/L (136-145)
[2023-01-27 12:32] LABS: Troponin I 0.019 ng/mL (< 0.028)
[2023-01-27 14:38] LABS: Iron 45 ug/dL (50-170); Iron Binding Capacity, Total 288 mcg/dL (265-497)
== END 2023-01-27 16:04 | disposition home or self-care (01) ==
LOC: ERS 11:22
DX: S22.050A Wedge compression fracture of T5-T6 vertebra, initial encounter for closed fracture (principal); R06.00 Dyspnea, unspecified; E78.00 Pure hypercholesterolemia, unspecified; I11.0 Hypertensive heart disease with heart failure; I50.9 Heart failure, unspecified; K21.9 Gastro-esophageal reflux disease without esophagitis; J44.9 Chronic obstructive pulmonary disease, unspecified; Z79.899 Other long term (current) drug therapy
CPT/HCPCS: 71045; 71275; 80053; 82728; 83540; 83550; 83880; 84484; 85025; 93005; Q9967

== ENCOUNTER 2023-04-21 10:52 | Inpatient (IN) | payer MEDICARE, BC ==
[2023-04-21 11:49] LABS: Bacteria/HPF None Seen HPF (None Seen); Bilirubin Negative (Negative); Blood, Urine Negative (Negative); CAUTI Indications for Culture Alt mental st,lethar; Clarity Clear (Clear); Glucose, Urine (Dipstick) Normal (Negative); Ketone, Urine Negative (Negative); Leukocyte Negative Leu/uL (Negative); Nitrite Negative (Negative); Protein, Urine (Dipstick) Negative (Neg-Trace); RBC/HPF 0-3 HPF (0-3); Specific Gravity, Urine 1.013 (1.002-1.036); Squamous Epithelial 0-3 HPF (0-3); Urobilinogen Normal mg/dL (Less than 2); WBC/HPF 0-3 HPF (0-3)
[2023-04-21 11:50] LABS: Urine Culture Reflex No No
[2023-04-21 12:05] LABS: #Monocytes 0.8 thou/uL (0.11-0.59); #Neutrophils 8.5 thou/uL (1.40-6.50); %Basophils 0.2 % (0.0-1.0); %Lymphocytes 2.5 % (21.0-51.0); %Monocytes 8.1 % (0.0-10.0); %Neutrophils 87.5 % (42.0-75.0); Hematocrit 34.2 % (36.0-47.0); Hemoglobin 10.8 g/dL (12.0-16.0); Mean Corpuscular HGB CONC 31.6 g/dL (32.0-36.0); Mean Corpuscular Volume 91.9 fl (78.0-98.0); Mean Platelet Volume 9.9 fL (7.4-10.4); Platelet Count 247 10x3/uL (130-400); RBC Distribution Width 21.2 % (11.5-14.5); Red Blood Cell (RBC) Count 3.72 mill/uL (4.20-5.40); White Blood Cell (WBC) Count 9.7 10x3/uL (4.8-10.8)
[2023-04-21 12:19] LABS: ALT (SGPT) 16 U/L (8-55); AST (SGOT) 25 U/L (5-34); Albumin 2.9 g/dL (3.4-4.8); Alkaline Phosphatase 170 U/L (40-110); Anion Gap 13 mmol/L (10-20); BUN (Urea Nitrogen) 44 mg/dL (9.8-20.1); Bilirubin, Total 0.7 mg/dL (0.2-1.2); Calc. Creatinine Clearance 0 mL/min (70-130); Calcium 9.3 mg/dL (7.8-10.44); Carbon Dioxide 24 mmol/L (23-31); Chloride 98 mmol/L (98-107); Estimated GFR 24; Globulin 2.5 g/dL (2.4-3.5); Glucose 92 mg/dL (83-110); Protein, Total 5.4 g/dL (5.8-8.1); Sodium 130 mmol/L (136-145)
[2023-04-21 12:24] LABS: Troponin I 0.106 ng/mL (< 0.028)
[2023-04-21] MEDS ORDERED: Aspirin Chewable 81 MG TAB ONE (12:50)
[2023-04-21 13:58] LABS: Critical Call Chemistry SJOS.TNA@1357; Digoxin 4.02 ng/mL (0.8-2.0)
[2023-04-21] MEDS ORDERED: Calcium Carbonate 500 MG ChewTAB PO PRN (14:09)
[2023-04-21] MEDS: DIGOXIN IMMUNE FAB IVPB SCH (20:28)
[2023-04-21] MEDS: SODIUM CHLORIDE 0.9% IVPB SCH (20:28)
[2023-04-21] MEDS: Sodium Chloride 0.9% 1,000 ML IV SCH (20:33)
[2023-04-21] MEDS ORDERED: Loratadine 10 MG TAB ONE (22:51)
[2023-04-21] MEDS ORDERED: Atorvastatin Calcium 20 MG TAB ONE (22:51)
[2023-04-21] MEDS ORDERED: traZODone HCl 50 MG TAB ONE (22:51)
[2023-04-21] MEDS: Loratadine 10 MG TAB PO SCH (23:38)
[2023-04-21] MEDS: Atorvastatin Calcium 20 MG TAB PO SCH (23:38)
[2023-04-21] MEDS: traZODone HCl 50 MG TAB PO SCH (23:38)
[2023-04-22] MEDS: Melatonin 3 MG TAB PO SCH (01:36)
[2023-04-22 04:50] LABS: #Monocytes 0.7 thou/uL (0.11-0.59); #Neutrophils 5.4 thou/uL (1.40-6.50); %Basophils 0.3 % (0.0-1.0); %Eosinophils 0.4 % (0.0-10.0); %Lymphocytes 8.8 % (21.0-51.0); %Monocytes 10.7 % (0.0-10.0); Hematocrit 30.7 % (36.0-47.0); Hemoglobin 9.5 g/dL (12.0-16.0); Mean Corpuscular HGB CONC 30.9 g/dL (32.0-36.0); Mean Corpuscular Hemoglobin 28.9 pg (27.0-31.0); Mean Corpuscular Volume 93.3 fl (78.0-98.0); Platelet Count 227 10x3/uL (130-400); RBC Distribution Width 21.6 % (11.5-14.5); Red Blood Cell (RBC) Count 3.29 mill/uL (4.20-5.40); White Blood Cell (WBC) Count 6.9 10x3/uL (4.8-10.8)
[2023-04-22 05:46] LABS: ALT (SGPT) 13 U/L (8-55); AST (SGOT) 24 U/L (5-34); Albumin 2.5 g/dL (3.4-4.8); Alkaline Phosphatase 150 U/L (40-110); Anion Gap 12 mmol/L (10-20); BUN (Urea Nitrogen) 39 mg/dL (9.8-20.1); Bilirubin, Total 0.4 mg/dL (0.2-1.2); Calc. Creatinine Clearance 25 mL/min (70-130); Calcium 8.7 mg/dL (7.8-10.44); Carbon Dioxide 22 mmol/L (23-31); Chloride 103 mmol/L (98-107); Estimated GFR 28; Globulin 2.2 g/dL (2.4-3.5); Glucose 67 mg/dL (83-110); Magnesium 1.9 mg/dL (1.6-2.6); Potassium 4.2 mmol/L (3.5-5.1); Protein, Total 4.7 g/dL (5.8-8.1); Sodium 133 mmol/L (136-145)
[2023-04-22] MEDS: fentaNYL 25 mcg Patch TD SCH (07:03)
[2023-04-22] MEDS ORDERED: Aspirin Chewable 81 MG TAB ONE (09:19)
[2023-04-22] MEDS ORDERED: Enoxaparin 40 MG (0.4 mL) SYRINGE ONE (09:19)
[2023-04-22] MEDS: Anastrozole 1 MG TAB PO SCH (10:09)
[2023-04-22] MEDS: Escitalopram Oxalate 10 mg Tablet PO SCH (10:09)
[2023-04-22] MEDS: Enoxaparin 40 MG (0.4 mL) SYRINGE SC SCH (10:09)
[2023-04-22] MEDS: Aspirin Chewable 81 MG TAB PO SCH (10:09)
[2023-04-22] MEDS ORDERED: Enoxaparin 30 MG (0.3 mL) SYRINGE SC SCH ×2 (10:15)
[2023-04-22] MEDS: Acetaminophen 325 MG TAB PO PRN (15:28)
[2023-04-22] MEDS ORDERED: traMADol HCl 50 MG TAB PO PRN (15:56)
[2023-04-22] MEDS: Sodium Chloride 0.9% 1,000 ML IV SCH (16:27)
[2023-04-22 16:39] VITALS: BMI 31.3
[2023-04-23 06:32] LABS: #Monocytes 0.8 thou/uL (0.11-0.59); %Basophils 0.6 % (0.0-1.0); %Eosinophils 0.5 % (0.0-10.0); %Lymphocytes 7.9 % (21.0-51.0); %Monocytes 11.7 % (0.0-10.0); %Neutrophils 77.6 % (42.0-75.0); Hematocrit 30.2 % (36.0-47.0); Hemoglobin 9.4 g/dL (12.0-16.0); Mean Corpuscular HGB CONC 31.1 g/dL (32.0-36.0); Mean Corpuscular Hemoglobin 28.7 pg (27.0-31.0); Mean Corpuscular Volume 92.1 fl (78.0-98.0); Mean Platelet Volume 9.7 fL (7.4-10.4); Platelet Count 213 10x3/uL (130-400); RBC Distribution Width 22.1 % (11.5-14.5); Red Blood Cell (RBC) Count 3.28 mill/uL (4.20-5.40); White Blood Cell (WBC) Count 6.5 10x3/uL (4.8-10.8)
[2023-04-23 07:09] LABS: ALT (SGPT) 14 U/L (8-55); AST (SGOT) 22 U/L (5-34); Albumin 2.4 g/dL (3.4-4.8); Alkaline Phosphatase 144 U/L (40-110); Anion Gap 12 mmol/L (10-20); BUN (Urea Nitrogen) 27 mg/dL (9.8-20.1); Bilirubin, Total 0.6 mg/dL (0.2-1.2); Calc. Creatinine Clearance 36 mL/min (70-130); Calcium 8.6 mg/dL (7.8-10.44); Carbon Dioxide 24 mmol/L (23-31); Chloride 105 mmol/L (98-107); Estimated GFR 40; Glucose 75 mg/dL (83-110); Magnesium 1.8 mg/dL (1.6-2.6); Potassium 4.5 mmol/L (3.5-5.1); Protein, Total 4.4 g/dL (5.8-8.1); Sodium 136 mmol/L (136-145)
[2023-04-23] MEDS: Mometasone Furoate 120 PUFF 220 MCG INH SCH (07:41)
[2023-04-23 07:47] LABS: Critical Call Chemistry NUR.VB5@0746; Digoxin 3.11 ng/mL (0.8-2.0)
[2023-04-23] MEDS: Enoxaparin 30 MG (0.3 mL) SYRINGE SC SCH (09:04)
[2023-04-23] MEDS: fentaNYL 25 mcg Patch TD SCH (12:33)
[2023-04-24 06:05] LABS: #Basophils 0.1 thou/uL (0.0-0.2); #Monocytes 0.8 thou/uL (0.11-0.59); %Basophils 0.7 % (0.0-1.0); %Eosinophils 0.1 % (0.0-10.0); %Lymphocytes 6.6 % (21.0-51.0); %Monocytes 11.1 % (0.0-10.0); %Neutrophils 79.7 % (42.0-75.0); Hematocrit 29.3 % (36.0-47.0); Hemoglobin 9.2 g/dL (12.0-16.0); Mean Corpuscular HGB CONC 31.4 g/dL (32.0-36.0); Mean Corpuscular Hemoglobin 28.8 pg (27.0-31.0); Mean Corpuscular Volume 91.6 fl (78.0-98.0); Mean Platelet Volume 9.8 fL (7.4-10.4); Platelet Count 212 10x3/uL (130-400); RBC Distribution Width 22.5 % (11.5-14.5); White Blood Cell (WBC) Count 7.6 10x3/uL (4.8-10.8)
[2023-04-24 06:33] LABS: Anion Gap 10 mmol/L (10-20); BUN (Urea Nitrogen) 23 mg/dL (9.8-20.1); Calc. Creatinine Clearance 41 mL/min (70-130); Calcium 8.5 mg/dL (7.8-10.44); Carbon Dioxide 24 mmol/L (23-31); Chloride 104 mmol/L (98-107); Estimated GFR 46; Glucose 85 mg/dL (83-110); Sodium 134 mmol/L (136-145)
[2023-04-24] MEDS: Senokot S 8.6-50 MG TAB PO PRN (09:51)
[2023-04-24] MEDS: Ondansetron PF 4 MG/2 ML Vial IVP PRN (13:37)
[2023-04-25 06:37] LABS: #Monocytes 0.8 thou/uL (0.11-0.59); %Basophils 0.5 % (0.0-1.0); %Eosinophils 0.4 % (0.0-10.0); %Lymphocytes 5.6 % (21.0-51.0); %Monocytes 10.9 % (0.0-10.0); %Neutrophils 81.2 % (42.0-75.0); Hematocrit 30.6 % (36.0-47.0); Hemoglobin 9.5 g/dL (12.0-16.0); Mean Corpuscular Hemoglobin 28.4 pg (27.0-31.0); Mean Corpuscular Volume 91.6 fl (78.0-98.0); Mean Platelet Volume 9.8 fL (7.4-10.4); Platelet Count 211 10x3/uL (130-400); RBC Distribution Width 22.5 % (11.5-14.5); Red Blood Cell (RBC) Count 3.34 mill/uL (4.20-5.40); White Blood Cell (WBC) Count 7.4 10x3/uL (4.8-10.8)
[2023-04-25 06:52] LABS: Anion Gap 8 mmol/L (10-20); BUN (Urea Nitrogen) 19 mg/dL (9.8-20.1); Calc. Creatinine Clearance 47 mL/min (70-130); Calcium 8.4 mg/dL (7.8-10.44); Carbon Dioxide 23 mmol/L (23-31); Chloride 107 mmol/L (98-107); Estimated GFR 55; Glucose 84 mg/dL (83-110); Potassium 4.4 mmol/L (3.5-5.1); Sodium 134 mmol/L (136-145)
[2023-04-25] MEDS: Enoxaparin 40 MG (0.4 mL) SYRINGE SC SCH (08:49)
[2023-04-25] MEDS: Apixaban 5 MG TAB PO SCH (20:37)
[2023-04-26 02:53] LABS: #Basophils 0.1 thou/uL (0.0-0.2); #Monocytes 0.9 thou/uL (0.11-0.59); #Neutrophils 5.6 thou/uL (1.40-6.50); %Basophils 0.7 % (0.0-1.0); %Eosinophils 0.1 % (0.0-10.0); %Lymphocytes 8.1 % (21.0-51.0); %Monocytes 12.2 % (0.0-10.0); %Neutrophils 77.4 % (42.0-75.0); Hematocrit 31.2 % (36.0-47.0); Hemoglobin 9.6 g/dL (12.0-16.0); Mean Corpuscular HGB CONC 30.8 g/dL (32.0-36.0); Mean Corpuscular Hemoglobin 28.5 pg (27.0-31.0); Mean Corpuscular Volume 92.6 fl (78.0-98.0); Mean Platelet Volume 9.5 fL (7.4-10.4); Platelet Count 211 10x3/uL (130-400); RBC Distribution Width 22.5 % (11.5-14.5); Red Blood Cell (RBC) Count 3.37 mill/uL (4.20-5.40); White Blood Cell (WBC) Count 7.2 10x3/uL (4.8-10.8)
[2023-04-26 03:23] LABS: Anion Gap 15 mmol/L (10-20); BUN (Urea Nitrogen) 20 mg/dL (9.8-20.1); Calc. Creatinine Clearance 44 mL/min (70-130); Calcium 8.2 mg/dL (7.8-10.44); Carbon Dioxide 18 mmol/L (23-31); Chloride 105 mmol/L (98-107); Estimated GFR 51; Glucose 83 mg/dL (83-110); Potassium 4.3 mmol/L (3.5-5.1); Sodium 134 mmol/L (136-145)
[2023-04-26] MEDS: methylPREDNISolone Sod Succ 40 MG VIAL IVP SCH (11:32)
[2023-04-26] MEDS: Colchicine 0.6 MG TAB PO SCH (11:33)
[2023-04-26 15:49] VITALS: BP 114/58; TEMP 97.4
[2023-04-26] MEDS ORDERED: Apixaban 2.5 MG TAB PO SCH (21:00)
== END 2023-04-26 18:00 | DRG 948 ==
LOC: SUATTDRO 10:52 → ERS 10:52 → ERHOLD 14:14 → 2NO 04-22 14:46
PROVIDERS: ADMIT Internal Medicine; ATTEND Internal Medicine
PROC: 0D758ZZ Dilation of Esophagus, Via Natural or Artificial Opening Endoscopic (ICD-10-PCS; principal; 2023-04-20)
DX: R53.83 Other fatigue (principal); E87.1 Hypo-osmolality and hyponatremia; I50.32 Chronic diastolic (congestive) heart failure; N17.9 Acute kidney failure, unspecified; N18.4 Chronic kidney disease, stage 4 (severe); R53.1 Weakness; R11.2 Nausea with vomiting, unspecified; R41.82 Altered mental status, unspecified; T46.0X5A Adverse effect of cardiac-stimulant glycosides and drugs of similar action, initial encounter; G89.29 Other chronic pain; I25.10 Atherosclerotic heart disease of native coronary artery without angina pectoris; I50.9 Heart failure, unspecified; E78.00 Pure hypercholesterolemia, unspecified; I11.0 Hypertensive heart disease with heart failure; K21.9 Gastro-esophageal reflux disease without esophagitis; Z96.653 Presence of artificial knee joint, bilateral; F41.9 Anxiety disorder, unspecified; J44.9 Chronic obstructive pulmonary disease, unspecified; D64.9 Anemia, unspecified; I10 Essential (primary) hypertension; E78.5 Hyperlipidemia, unspecified; I48.91 Unspecified atrial fibrillation; N18.9 Chronic kidney disease, unspecified; Z66 Do not resuscitate; I48.0 Paroxysmal atrial fibrillation; Z86.711 Personal history of pulmonary embolism; Z90.710 Acquired absence of both cervix and uterus; Z98.890 Other specified postprocedural states; Z85.3 Personal history of malignant neoplasm of breast; Z79.899 Other long term (current) drug therapy; Z79.51 Long term (current) use of inhaled steroids; Z79.01 Long term (current) use of anticoagulants; R13.10 Dysphagia, unspecified; K31.7 Polyp of stomach and duodenum; R63.0 Anorexia; K59.09 Other constipation; R63.4 Abnormal weight loss; Z68.31 Body mass index [BMI] 31.0-31.9, adult; Z90.49 Acquired absence of other specified parts of digestive tract; M79.604 Pain in right leg; M25.551 Pain in right hip; W19.XXXD Unspecified fall, subsequent encounter; M16.11 Unilateral primary osteoarthritis, right hip
CPT/HCPCS: 36415; 36416; 51701; 70450; 71045; 72125; 80048; 80053; 80162; 81001; 83735; 84484; 85025; 93005; 96374; J1650; J2001; J2405; J2704; J2920; J7050; J7611